=== PATIENT | female | born 1965 | race Caucasian/White ===

== ENCOUNTER → 2022-05-12 | Outpatient (CLI) | payer SELFPAY ==
--- NOTE | 2022-05-12 16:21 | MRI_ITS ---
EXAM: MR LUMBAR SPINE WITHOUT INTRAVENOUS CONTRAST CLINICAL INDICATION: INTERVERTEBRAL DISC DEGEN TECHNIQUE: Multiplanar and multisequence MR images of the lumbar spine without intravenous contrast. This report was created using Pricing Assistant report Z-good technology. COMPARISON: None. FINDINGS: VERTEBRAE: L1, L2 and L3 hemangiomata noted. Vertebral body heights are preserved. Normal alignment. No spondylolisthesis. There is preservation of the normal lumbar lordosis. Multilevel facet arthropathy. SPINAL CORD: Unremarkable. Normal position and signal intensity of the conus medullaris. SOFT TISSUES: Unremarkable. DISCS/SPINAL CANAL/NEURAL FORAMINA: L1-2: Disc space narrowing and anterior vertebral body osteophytosis. Normal caliber spinal canal and neural foramina. L2-3: Disc space narrowing and anterior disc osteophyte protrusion. Normal caliber spinal canal and neural foramina. L3-L4: Mild disc space narrowing. Normal spinal canal and lateral recesses. Normal neuroforamina. L4-L5: Unremarkable. Normal disc height and morphology. Normal spinal canal and lateral recesses. Normal neuroforamina. L5-S1: Unremarkable. Normal disc height and morphology. Normal spinal canal and lateral recesses. Normal neuroforamina. MRI/Spine Lumbar (Routine) IMPRESSION: 1. Disc degeneration at L1-2 and L2-3. 2. Multilevel facet arthropathy. 3. No evidence of spinal or neural foraminal narrowing. Electronically Signed: Grover Cage MD at 9:47 EDT ,
== END | disposition home or self-care (01) ==
PROVIDERS: PCP Physician Assistant
DX: M99.03 Segmental and somatic dysfunction of lumbar region (principal); M99.04 Segmental and somatic dysfunction of sacral region; M51.36 Other intervertebral disc degeneration, lumbar region; M47.817 Spondylosis without myelopathy or radiculopathy, lumbosacral region
CPT/HCPCS: 72148

== ENCOUNTER → 2025-03-18 | Outpatient (CLI) | payer SELFPAY ==
--- NOTE | 2025-03-18 16:30 | RAD_ITS ---
PROCEDURE: L/S SPINE BENDING FLEX/EXT 03/18/2025 REASON FOR EXAM: OTHER INTERVERTEBRAL DISC DEGENERATION, LUMBAR REGION WITH DISCOG TECHNIQUE: 6 views; AP, lateral, flexion-extension and bilateral obliques COMPARISON: None available FINDINGS: 5 [id number] lumbar vertebral body types identified. No fracture or malalignment. No evidence of instability. L1-2 [id number] disc space narrowing with degenerative endplate changes L2-3 moderate disc space narrowing with anterior corner spurring L3-4 mild disc space narrowing No evidence of spondylolysis. Status post cholecystectomy. RAD/L/S Spine Bending Flex/Ext IMPRESSION: Multilevel spondylosis/discogenic change as above. Reading Location: [id number]
== END | disposition home or self-care (01) ==
PROVIDERS: PCP Family Medicine; Referring Provider Chiropractor Orthopedic; Visit Provider Chiropractor Orthopedic
DX: M99.03 Segmental and somatic dysfunction of lumbar region (principal); M51.360 Other intervertebral disc degeneration, lumbar region with discogenic back pain only
CPT/HCPCS: 72120

== ENCOUNTER → 2025-04-25 | Outpatient (CLI) | payer OTHER, SELFPAY ==
--- NOTE | 2025-04-25 16:21 | RAD_ITS ---
PROCEDURE: KNEE 4 OR MORE VIEWS 04/25/2025 REASON FOR EXAM: KNEE SPRAIN/STRAIN TECHNIQUE: 4 view(s) of the right knee COMPARISON: None. FINDINGS: Mild tricompartmental changes of degenerative joint disease. No fracture or dislocation is seen. No lytic or blastic bone lesion is noted. RAD/Knee 4 or More Views IMPRESSION: No evidence for acute abnormality. Reading [facility]
--- OUTSIDE RECORDS SUMMARY | 2025-04-25 21:24 | XMS RPT_ITS | CCD ---
Author Organization [facility] CliniSynh Care Team Providers Care Learning Specialist Name Role Phone Noman Hardin Unavailable La Kidd Unavailable Unavailable La Kidd Unavailable Unavailable Noman Hardin Unavailable Unavailable Josué Rao Unavailable Unavailable Josué Rao Unavailable Unavailable Noman Hardin Unavailable Unavailable Noman Hardin Primary Care Provider La Patterson Primary Care Provider La Patterson Unavailable JONNATHAN AVENDAÑO Admitting Unavailable JONNATHAN AVENDAÑO Attending Unavailable LA PATTERSON JR. Primary Care Unava ilable Noman Hardin Primary Care Provider La Patterson Primary Care Provider [phone] La Patterson Unavailable Kiara Saldana Primary Care Provider Required, No Pcp Unavailable Unavailable Osvaldo Yost Unavailable Unavailable Mariana Whiting Unavailable Unavailable Kody Ferris Unavailable Unavailable Unavailable Barrington, Mr. Kody Littlejohn Primary Care Unav ailable UMA GONZALEZ Attending Unavailable UMA GONZALEZ Referring Unavailable Barrington, Mr. Kody Littlejohn Primary Care Unav ailable UMA GONZALEZ Attending Unavailable UMA GONZALEZ Referring Unavailable Barrington, Mr. Kody Littlejohn Primary Care Unav ailable Vaibhav, Ms. Mariana Quesada Attending Unava ilable Gonzalez II, Dr. Uma Rizvi Attending Unavai lable Gonzalez II, Dr. Uma Rizvi Referring Unavai lable Ferris, Mr. Kody Littlejohn Primary Care Unav ailable Barrington, Mr. Kody Littlejohn Referring Unav ailable Ellie Duran Attending Unavailable Barrington, Mr. Kody Littlejohn Primary Care Unav ailable Priyank, Ms. Osvaldo Hylton Attending Unavai lable Vaibhav, Ms. Mariana Quesada Attending Unava ilable Gonzalo WARHEAD MAINTENANCE SPECIALIST-DIRECTOR OF RESIDENCE LIFE, Kiara Primary Care Provider Gonzalo WARHEAD MAINTENANCE SPECIALIST-DIRECTOR OF RESIDENCE LIFE, Kiara Primary Care Provider CONNIE HADDAD Attending Unavailable SELF, SELF Referring Unavailable KIARA WHITE Primary Care Unavailable Barrington HANSEN, Kody Eron Primary Care [facility] er Maricel Walter MD Primary Care Provider Maricel Walter MD Primary Care Provider MARICEL WALTER Attending Unavailab KODY Mayen Primary Care Unavaila MARICEL Cook Attending Unavailab MARICEL Jose Referring Unavailab MARICEL Jose Primary Care Unavailab MARICEL Jose Attending Unavailab MARICEL Jose Primary Care Unavailab Laureen KELLY, Dr. Connelly Primary Care Provide r LA KIDD DO Attending Provider [phone] LA KIDD DO Referring Provider Maricel Walter Primary Care Unavailable LA KIDD Referring Unavailable LA KIDD Attending Unavailable PROVIDER, UNKNOWN Attending Unavailable PROVIDER, UNKNOWN Admitting Unavailable MARICEL WALTER Referring Unavaila isa Patterson Jr., MD, La López Primary Care Prov ider Sariah Mullins MD, Robert Edward Unavailable MAGGIE WALKER Attending Unavailable LA PATTERSON JR. Primary Care Unava ilable Allergies Allergy Classification Reported Allergen(s) Allergy Type Date of Onset Reaction(s) Facility (20 sources) Acetaminophen / HYDROcodone; Translations: [HYDROCODONE-VIDAL TAMINOPHEN] Drug Allergy 03-14-20 18 Hallucination, Hallucinations [facility] Work Phone: (1 source) No Known Medication Allergies; Translations: [No Known Medication Allergies] Propensity to adverse reactions to drug (disorder) [facility] Repository (4 sources) Acetaminophen / HYDROcodone; Translations: [Vicodin TABS] Drug Allergy [facility] Work Phone: Medications Current Medications Medication Drug Class(es) Dates Sig (Normalized) Sig (Original) [id number] 200 actuat albuterol 0.09 mg/actuat metered dose inhaler (6 sources) beta2-Adrenergic Agonist Start: 12-07-2024 take 2 puff(s) by inhalation every four hours for wheezing albuterol 90 mcg/actuation inhaler Inhale 2 puffs every 4 hours if needed for wheezing. 12/07/2024 Active Start: 11-20-2021 take 2 puff(s) by in halation every four hours as needed for cough albuterol 108 (90 Base) MCG/ACT Aero Soln inhaler Indications: COVID-19 long hauler Inhale 2 puffs every 4 hours as needed for Shortness of Breath, Cough or Wheezing. 18 g 11/20/2021 Active azithromycin 250 mg oral tablet (2 sources) Macrolide Antimicrobial Start: 12-07-2024 End: 12-25-2024 azithromycin (Zithromax) 250 mg tablet Take 1 tablet (250 mg) by mouth see administration instructions. TAKE 2 TABLETS (500 MG) BY ORAL ROUTE ONCE DAILY FOR 1 DAY THEN 1 TABLET (250 MG) BY ORAL ROUTE ONCE DAILY FOR 4 DAYS 12/07/2024 12/25/2024 Discontinued (Med List Cleanup) benzonatate 100 mg oral capsule (2 sources) Non-narcotic Antitussive Start: 12-11-2024 End: 12-25-2024 take 1 capsule by mouth three times daily as needed for cough benzonatate (Tessalon) 100 mg capsule Indications: Pneumonia due to infectious organism, unspecified laterality, unspecified part of lung Take 1 capsule (100 mg) by mouth 3 times a day as needed for cough. Do not crush or chew. 60 capsule 12/11/2024 12/25/2024 Discontinued (Med List Cleanup) biotin 1 mg oral capsule (3 sources) take 1 capsule by mouth once daily biotin 1 mg capsule Take 1 capsule (1 mg) by mouth once daily. Active bisacodyl 5 mg delayed release oral tablet (1 source) Stimulant Laxative Start: 10-31-2018 End: 10-31-2018 take 4 tablets by mouth once bisacodyl (DULCOLAX) [address] Take 4 tablets by mouth once for 1 dose. 4 tablet 0 10/31/2018 10/31/2018 Active brompheniramine maleate 0.4 mg/ml / dextromethorphan hydrobromide 2 mg/ml / pseudoephedrine hydrochloride 6 mg/ml oral solution (4 sources) alpha-Adrenergic Agonist, Uncompetitive C-ifikqp-Z-asparta te Receptor Antagonist, Sigma-1 Agonist Start: 12-05-2024 End: 12-25-2024 take 10 mL by mouth every six hours as needed brompheniramine-pse udoeph-DM 2-30-10 mg/5 mL syrup Take 10 mL by mouth every 6 hours if needed. 12/05/2024 12/25/2024 Discontinued (Med List Cleanup) cholecalciferol 0.01 mg oral tablet (19 sources) Vitamin D cholecalciferol, vitamin D3, 400 unit Tab Take by mouth daily . Active take 1 tablet by mouth once sowmya y cholecalciferol (Vitamin D-3) 10 MCG (400 UNIT) tablet Take 1 tablet (10 mcg) by mouth once daily. Active take 1 capsule by mouth once cici ly Cholecalciferol (VITAMIN D3 PO) Take 1 capsule by mouth daily. 0 Active take 1 capsule by mouth once cici ly Cholecalciferol (VITAMIN D3 PO) Take 1 capsule by mouth daily. Active cholecalciferol, vitamin D3, (cholecalciferol, vit D3,,bulk,) 100,000 unit/gram Powd (1 source) take 1 capsule by mouth once daily cholecalciferol, vitamin D3, (cholecalciferol, vit D3,,bulk,) 100,000 unit/gram Powd Take 1 capsule by mouth daily . Active 84 hr estradiol 0.75118 mg/hr transdermal system (4 sources) Estrogen Start: 5 End: 6 estradioL (Vivelle-Dot) 0.0375 mg/24 hr Indications: Menopausal symptoms Place 1 (one) patch on the skin twice weekly Start: 04/15/25. 8 patch 3 04/15/2025 04/15/2026 Active estradioL (ESTRA CE) 0.01 % (0.1 mg/gram) vaginal cream Insert 2 (two) g into the vagina daily . Active estradiol 0.1 MG /GM cream USE A PEA SIZED AMOUNT IN THE VAGINA TWICE WEEKLY Active 60 actuat fluticasone propionate 0.25 mg/actuat / salmeterol 0.05 mg/actuat dry powder inhaler (3 sources) Corticosteroid, beta2-Adrenergic Agonist Start: 11-20-2021 take 1 puff(s) by mouth twice daily fluticasone-salmeterol (Advair Diskus) 250-50 MCG/DOSE Aerosol Powder, breath activated inhaler Indications: COVID-19 long hauler Inhale 1 puff 2 times daily. After administration, rinse mouth with water and spit. 60 Each 11/20/2021 Active hyoscyamine sulfate 0.12 mg / methenamine 81.6 mg / methylene blue 10.8 mg / sodium phosphate, monobasic 40.8 mg oral tablet (6 sources) Oxidation-Reduction Agent Start: 01-07-2023 take 1 tablet by mouth once daily Dtkbwi-Rbyoa-Fsqp Blue-Na Phos (Urogesic-Blue) 81.6 MG tablet Take 1 tablet by mouth daily. 01/07/2023 Active Magnesium Citrate Po Soln (1 source) Start: 10-31-2018 End: 10-31-2018 take 296 mL by mouth once magnesium citrate Solution Take 296 mL by mouth once for 1 dose. Drink one bottle in the morning on the day before your colonoscopy and follow with a glass of water. 1 Bottle 0 10/31/2018 10/31/2018 Active magnesium sulfate 0.0277 meq/ml / potassium sulfate 0.0374 meq/ml / sodium sulfate 0.257 meq/ml oral solution (1 source) Start: 10-31-2018 End: 11-01-2018 sodium sulfate-potassium sulfate (SUPREP BOWEL PREP KIT) 17.5-3.13-1.6 GM/177ML Solution oral solution Take 177 mL by mouth once as directed for up to 1 day. Use as directed. 2 Bottle 0 10/31/2018 11/01/2018 Active Misc Natural Products (TURMERIC) capsule (7 sources) take 1 capsule by mouth once daily Misc Natural Products (TURMERIC) capsule Take 1 capsule by mouth daily. Active take 1 capsule by mouth once cici ly Misc Natural Products (TURMERIC) capsule Take 1 capsule by mouth daily. 0 Active Multiple Vitamin (multivitamin) tablet (2 sources) take 1 tablet by pepe th once daily Multiple Vitamin (multivitamin) tablet Take 1 tablet by mouth daily. Active take 1 tablet by mouth once oswmya y Multiple Vitamin (multivitamin) tablet Take 1 tablet by mouth daily. 0 Active yplwhvhrwhsl-Px-jcpf-mineral s Tab (1 source) take 1 tablet by mouth once daily vkdurnimlbmt-Kk-kvvj-minerals Tab Take 1 tablet by mouth daily . Active ondansetron 4 mg disintegrat ing oral tablet (5 sources) Serotonin-[address] ar t: En d: ondansetron ODT (Zofran-ODT) 4 mg disintegrating tablet Dissolve 1 tablet (4 mg) in the mouth see administration instructions. Place 1 tablet 3 times a day by translingual route as needed for 7 days 12/05/2024 12/25/2024 Discontinued (Med List Cleanup) Start: 03-05-2019 End: 03-05-2019 take 4 mg intravenous route every twenty-four hours as needed 4 mg, Intravenous, Once as needed, nausea, vomiting, Starting 03/05/19 at 1011, For 1 dose, PACU (only) Administer first as needed for nausea/vomiting, or as directed by anesthesia predniSONE 20 mg oral tablet (4 sources) Start: 12-11-2024 End: 12-16-2024 take 1 tablet by mouth once daily predniSONE (Deltasone) 20 mg tablet Indications: Pneumonia due to infectious organism, unspecified laterality, unspecified part of lung Take 1 tablet (20 mg) by mouth once daily for 5 days. 5 tablet 12/11/2024 12/16/2024 Active Start: 03-14-2018 End: 10-31-2018 take 1 tablet by mouth twice daily predniSONE 20 MG Tab tablet Take 1 tablet by mouth 2 times daily. 10 tablet 0 03/14/2018 10/31/2018 Discontinued progesterone 100 mg oral capsule (1 source) Progesterone Start: 04-12-2025 End: 04-12-2026 take 1 capsule by mouth once daily progesterone (PROMETRIUM) 100 MG capsule Indications: Menopausal symptoms Take 1 (one) capsule (100 mg total) by mouth nightly . 30 capsule 3 04/12/2025 04/12/2026 Active tiZANidine 2 mg oral tablet (4 sources) Central alpha-2 Adrenergic Agonist Start: 12-05-2024 End: 12-25-2024 take 1 tablet by mouth three times daily tiZANidine (Zanaflex) 2 mg tablet Take 1 tablet (2 mg) by mouth 3 times a day. 12/05/2024 12/25/2024 Discontinued (Med List Cleanup) Turmeric Po Capsule (5 sources) take 1 capsule by mouth once daily Misc Natural Products (TURMERIC) capsule Take 1 capsule by mouth daily. Active Zinc (5 sources) Zinc 50 MG capsu le Take 1 capsule by mouth. Active Zinc 50 MG capsu le Take 1 capsule by mouth. 0 Active Zinc 50 MG capsu le Take 50 mg by mouth. 0 Active zinc citrate-phytase 25-500 mg cap (1 source) zinc citrate-phy tase 25-500 mg cap Take 50 mg by mouth . Active Completed/Discontinued Medications Medication Drug Class(es) Dates Sig (Normalized) Sig (Original) ascorbic acid 1000 mg oral tablet (20 sources) Vitamin C End: 04-12-2025 take 1 tablet by mouth once daily ascorbic acid, vitamin C, (vitamin C) 1000 MG tablet Take 1,000 mg by mouth daily . 04/12/2025 Discontinued End: 04-12-2025 take 1 tablet by mouth once daily ascorbic acid, vitamin C, 500 mg/4 gram (1 teaspooful) Powd Take 1 tablet by mouth daily . 04/12/2025 Discontinued (Error) take 1 tablet by pepe th once daily Ascorbic Acid (VITAMIN C PO) Take 1 tablet by mouth daily. 0 Active take 1 tablet by pepe th once daily Ascorbic Acid (VITAMIN C PO) Take 1 tablet by mouth daily. Active calcium chloride 0.0014 meq/ml / potassium chloride 0.004 meq/ml / sodium chloride 0.103 meq/ml / sodium lactate 0.028 meq/ml injectable solution (2 sources) Start: 03-05-2019 End: 03-05-2019 take 100 mL intravenous route every hour 100 mL/hr, Intravenous, Continuous, Starting Tue03/05/19 at 1100, PACU (only) Start: 03-05-2019 End: 03-05-2019 lactated Ringers infusion diclofenac sodium 50 mg delayed release oral tablet (3 sources) Nonsteroidal Anti-inflammatory Drug Start: 03-14-2018 End: 10-31-2018 take 1 tablet by mouth twice daily diclofenac sodium [address] Take 1 tablet by mouth 2 times daily. 10 tablet 0 03/14/2018 10/31/2018 Discontinued escitalopram 10 mg oral tablet (1 source) Serotonin Reuptake Inhibitor Start: 08-18-2021 End: 09-18-2021 take 1 tablet by mouth once daily escitalopram (Lexapro) 10 MG tablet Indications: Menopausal symptoms Take 1 tablet by mouth daily. 30 tablet 1 08/18/2021 09/18/2021 Discontinued 4 ml labetalol hydrochloride 5 mg/ml cartridge (1 source) beta-Adrenergic Tracey Start: 03-05-2019 End: 03-05-2019 5 mg, Intravenous, Every 5 min PRN, SBP greater than 180 or DBP greater than 120, Starting Tue03/05/19 at 1011, For 4 doses, PACU (only) [] Do not give more than 20 mg total. [] Hold for HR less than 50. nitrofurantoin, macrocrystals 25 mg / nitrofurantoin, monohydrate 75 mg oral capsule (2 sources) Nitrofuran Antibacterial Start: 10-16-2022 End: 10-22-2022 take 1 capsule by mouth twice daily at mealtime Macrobid 100 mg oral capsule ; 1 cap(s) orally 2 times a day Quantity: 14 Refills: 0 Ordered: 16-Oct-2022 Osvaldo Yost Start: 16-Oct-2022 End: 22-Oct-2022 Generic Substitution Allowed Comments: Finish all this medication unless otherwise directed by prescriber.May discolor urine or feces.Take with food or milk. Comment on above: Finish all this medi cation unless otherwise directed by prescriber.May discolor urine or feces.Take with food or milk. phentermine hydrochloride 37.5 mg oral tablet (8 sources) Sympathomimetic Amine Anorectic Start: 09-18-2021 End: 11-21-2021 take 1 tablet by mouth once daily before breakfast phentermine 37.5 MG tablet Indications: BMI 31.0-31.9,adult , Pure hypercholesterolemia Take 1 tablet by mouth every morning before breakfast. 30 tablet 0 10/22/2021 11/20/2021 Discontinued End: 04-12-2025 take 1 capsule by mouth once daily in the morning phentermine (ADIPEX-P) 37.5 MG capsule Take 37.5 mg by mouth every morning . 04/12/2025 Discontinued (Patient's Request) 2 ml prochlorperazine 5 mg/ml injection (1 source) Phenothiazine Start: 03-05-2019 End: 03-05-2019 take 5 mg intravenous route every twenty-four hours as needed 5 mg, Intravenous, Once as needed, nausea, Starting 03/05/19 at 1011, For 1 dose, PACU (only) Administer if ondansetron (Zofran), promethazine (Phenergan), and Metocolopramide (Reglan) ineffective or not ordered, or as directed by anesthesia, as needed for nausea/vomiting Problems Active Problems Problem Classification Problem Date Documented Da te Episodic/Chronic Abdominal pain (7 sources) Unspecified abdominal pain; Translations: [Abdominal pain] Onset: 10-16-2022 02-21-2025 Episodic Disorders of lipid metabolism (2 sources) Pure hypercholesterolemia; Translations: [Pure hypercholesterolemia, unspecified] Chronic Genitourinary symptoms and ill-defined conditions (20 sources) Dysuria; Translations: [Dysuria] Onset: 10-23-2022 10-23-2022 Episodic Menopausal disorders (5 sources) Menopausal symptom; Translations: [Menopausal and female climacteric states] Onset: 02-08-2023 Chronic Nausea and vomiting (8 sources) Nausea and vomiting; Translations: [Nausea with vomiting, unspecified] Onset: 12-05-2024 12-05-2024 Episodic Other bone disease and musculoskeletal deformities (1 source) Segmental and somatic dysfunction of lumbar region; Translations: [Segmental and somatic dysfunction of lumbar region] Onset: 03-21-2025 Episodic Other female genital disorders (2 sources) Vaginal irritation; Translations: [Unspecified noninflammatory disorder of vagina] 10-23-2022 Episodic Other gastrointestinal disorders (2 sources) Abdominal bloating; Translations: [Abdominal distension (gaseous)] 02-21-2025 Episodic Other gastrointestinal disorders (3 sources) Abdominal distension (gaseous); Translations: [Abdominal distension (gaseous)] Onset: 02-21-2025 Episodic Other infections; including parasitic (1 source) Late effects of other and unspecified infectious and parasitic diseases; Translations: [COVID-19 long hauler] Chronic Other nutritional; endocrine; and metabolic disorders (12 sources) Obesity, unspecified; Translations: [Obese class I] Onset: 10-05-2018 10-05-2018 Chronic Other nutritional; endocrine; and metabolic disorders (2 sources) Body mass index 30+ - obesity; Translations: [Body mass index (BMI) 31.0-31.9, adult] Chronic Other nutritional; endocrine; and metabolic disorders (1 source) Obese class I; Translations: [Obesity (BMI 30.0-34.9)] Onset: 10-05-2018 10-05-2018 Other skin disorders (1 source) Loss of hair; Translations: [Nonscarring hair loss, unspecified] 04-12-2025 Episodic Other skin disorders (2 sources) Nonscarring hair loss, unspecified; Translations: [Nonscarring hair loss, unspecified] Onset: 04-12-2025 Episodic Pneumonia (except that caused by tuberculosis or sexually transmitted disease) (3 sources) Pneumonia; Translations: [Pneumonia, unspecified organism] Onset: 12-11-2024 12-11-2024 Episodic Spondylosis; intervertebral disc disorders; other back problems (1 source) Acute low back pain; Translations: [Acute midline low back pain without sciatica] 12-05-2024 Episodic Unclassified (11 sources) Screening status; Translations: [Encounter for screening colonoscopy] Onset: 10-31-2018 10-31-2018 Unclassified (4 sources) Patient encounter status; Translations: [Encounter for screening colonoscopy] Onset: 10-31-2018 10-31-2018 Unclassified (1 source) Low back pain, unspecified; Translations: [Low back pain, unspecified] Onset: 12-05-2024 Urinary tract infections (8 sources) Urinary tract infectious disease; Translations: [Recurrent urinary tract infection] 12-03-2022 Episodic Comment on above: UTI Viral infection (3 sources) Viral disease; Translations: [Viral infection, unspecified] Onset: 12-05-2024 12-05-2024 Episodic Past or Other Problems Problem Classification Problem Date Documented Date Episodic/Chronic Other female genital disorders (2 sources) Other specified noninflammatory disorders of vagina; Translations: [Other specified noninflammatory disorders of vagina] Onset: 10-23-2022 Episodic Other screening for suspected conditions (not mental disorders or infectious disease) (12 sources) Mammography abnormal; Translations: [Encounter for screening for malignant neoplasm of colon] Onset: 10-31-2018 08-18-2021 Episodic Unclassified (1 source) Low back pain, unspecified; Translations: [Low back pain, unspecified] Onset: 12-05-2024 Results Test Name Value Interpretation Reference Range Facility CT ABDOMEN/PELVIS W/ CONTRAS Ton 03-19-2025 CT ABDOMEN/PELVIS W/ CONTRAST EXAMINATION: CT ABDOMEN/PELVIS W/ CONTRAST 03/19/2025 09:35 AM CLINICAL HISTORY: Abdominal pain ASSOCIATED DIAGNOSIS: Abdominal pain, unspecified abdominal location Bloating Nausea ORDERING PROVIDER: MARICEL WALTER TECHNOLOGISTS NOTE: COMPARISON: There are no prior studies available for comparison. TECHNIQUE: Contiguous axial images were obtained through the abdomen and pelvis from the level of the diaphragmatic domes through the pubic symphysis following bolus administration of intravenous contrast. MPR sagittal and coronal reconstructions were obtained from the axial data. Before infusion of intravenous contrast, radiology personnel investigated the possibility of an allergic history and of any history of reaction to iodinated contrast material. Contrast Protocol: Omnipaque 350 [>or =100lb] 100 ml [<100 lb] 1 ml per 1 lb. INTRA-PROCEDURE MEDS: iohexol (OMNIPAQUE) 300 MG/ML injection 50 mL Route: Oral iohexol (OMNIPAQUE) 350 MG/ML injection 100 mL Route: Intravenous Push FINDINGS: Included images of the lower thorax: There is a small right Bochdalek hernia and moderate left Bochdalek hernia compressing the posterior inferior medial recesses of both lower lobes. The remaining visualized lung bases are clear and interstitial markings are normal with no evidence of pleural disease. The visualized cardiac structures are grossly normal. Hepatobiliary: The liver is normal in size and shape and mildly decreased in density relative to the spleen with no evidence of focal lesions or abnormal enhancement. The patient is status post cholecystectomy and the intrahepatic and extrahepatic bile ducts are normal. Pancreas: The pancreas is normal in size and shape with no evidence of focal lesions, abnormal enhancement, ductal dilatation or inflammatory change. Spleen: The spleen is normal in size, shape and density with no evidence of focal lesions or abnormal enhancement. There is a 10 x 10 x 10 mm accessory spleen lateral to the posterior splenic flexure and anterior to the inferior spleen. Adrenal Glands: The adrenal glands are normal in size and shape with no evidence of focal lesions or abnormal enhancement. Kidneys, ureters, and bladder: The kidneys are normal in size and shape with no evidence of focal lesions, abnormal enhancement or renal stones. There is normal uptake, concentration and excretion of intravenous contrast within both kidneys and the intrarenal and extrarenal collecting systems. The visualized ureters are grossly normal with no evidence of ureterolithiasis. The bladder is poorly distended and grossly normal with no evidence of bladder stones. Abdominal and pelvic vasculature: The abdominal aorta is normal in caliber and mildly tortuous with mild patchy atherosclerotic calcification. There is mild calcification of the right common iliac artery with no evidence of flow-limiting stenosis and the left common iliac arteries are normal. The celiac, superior mesenteric and renal arteries are normal. The inferior vena cava and portal venous system are normal. GI tract: The stomach, duodenum, proximal small bowel and distal small bowel are not opacified with oral contrast and grossly normal. The remaining small bowel is opacified with oral contrast and normal with no evidence of obstruction or inflammatory change. There is a mild to moderate amount of stool throughout the colon and the large bowel and rectum are grossly normal. The appendix is grossly normal. Peritoneum and retroperitoneum: There is no evidence of free air or free fluid throughout the abdomen and pelvis. Lymph Nodes: There is no evidence of adenopathy throughout the abdomen and pelvis. Uterus and adnexa: The uterus is appropriate in size for the patient's age and normal in density. The endometrial canal is nonvisualized. The visualized ovaries and adnexa are grossly normal. Visualized musculoskeletal structures: There is mild osteopenia throughout study and the visualized vertebral bodies, pedicles and posterior lamina are intact and the lumbar vertebral body heights are normal. There is mild to moderate degenerative change throughout the visualized thoracic spine, lumbar spine, sacroiliac joints and hip joints. The remainder of the bony pelvis and sacrum are normal. There is a small fat-containing umbilical hernia. The remaining muscular and soft tissue structures of the body wall, pelvic and hip regions are normal. IMPRESSION: 1. There is no evidence of an acute abdominal or pelvic process. 2. There is no evidence of adenopathy. 3. The solid organs are normal and the bowel is grossly normal. 4. There are additional findings as described above. MACRO: None Normal [employer] L/S Spine Bending Flex/[place]ammond 03-18-2025 L/S Spine Bending Flex/Ext [facility] Services [address], [place] [id number] L/S Spine Bending Flex/Ext MR#: [id number] Acct: [id number] Name: THOM SPARKS Rep #: [id number] : 1965 F 60 From: La Coffey MD PCP: Dr. Maricel Walter MD Status: REG CLI Study: L/S Spine Bending Flex/Ext Date of Exam: 03/18 Exam# [id number] Ordering Dr: LA KDID DO PROCEDURE: L/S SPINE BENDING FLEX/EXT 03/18/2025 REASON FOR EXAM: OTHER INTERVERTEBRAL DISC DEGENERATION, LUMBAR REGION WITH DISCOG TECHNIQUE: 6 views; AP, lateral, flexion-extension and bilateral obliques COMPARISON: None available FINDINGS: 5 mem-esq-kxxokkp lumbar vertebral body types identified. No fracture or malalignment. No evidence of instability. L1-2 bryzieqd-yk-njjxmm disc space narrowing with degenerative endplate changes L2-3 moderate disc space narrowing with anterior corner spurring L3-4 mild disc space narrowing No evidence of spondylolysis. Status post cholecystectomy. RAD/L/S Spine Bending Flex/Ext IMPRESSION: Multilevel spondylosis/discogenic change as above. Reading Location: [id number] CC: Dr. Maricel Walter MD; LA KIDD DO Contract Associate: Signed Normal [facility] CBC (INCLUDES DIFF/PLT)on Basophils (Bld) [#/Vol] 0.069 10*3/uL Normal 0-200 [facility] Comment on above: Performed By: #### 7 600, 81713, 6399, 927, 52620 #### [facility] of [place] [address] Stress Engineer: Uvaldo Hurtado MD Basophils/100 WBC (Bld) 1.4 % Normal [facility] Comment on above: Performed By: #### 7 600, 63897, 6399, 927, 48064 #### [facility] [place] [address] Stress Engineer: Uvaldo Hurtado MD Eosinophils (Bld) [#/Vol] 0.314 10*3/uL Normal 15-500 [facility] Comment on above: Performed By: #### 7 600, 76296, 6399, 927, 97850 #### [facility] [place] [address] Stress Engineer: Uvaldo Hurtado MD Eosinophils/100 WBC (Bld) 6.4 % Normal [facility] Comment on above: Performed By: #### 7 600, 15114, 6399, 927, 68045 #### [facility] [place] [address] Stress Engineer: Uvaldo Hurtado MD Erythrocyte distribution width (RBC) [Ratio] 13.2 % Normal 11.0-15.0 [facility] Comment on above: Performed By: #### 7 600, 26806, 6399, 927, 01405 #### [facility] [place] [address] Stress Engineer: Uvaldo Hurtado MD Hematocrit (Bld) [Volume fraction] 42.2 % Normal 35.0-45.0 [facility] Comment on above: Performed By: #### 7 600, 25610, 6399, 927, 82735 #### [facility] [place] [address] Stress Engineer: Uvaldo Hurtado MD Hemoglobin (Bld) [Mass/Vol] 13.7 g/dL Normal 11.7-15.5 [facility] Comment on above: Performed By: #### 7 600, 46618, 6399, 92, 64784 #### [facility] [place] [address] Stress Engineer: Uvaldo Hurtado MD Lymphocytes (Bld) [#/Vol] 1.617 10*3/uL Normal 850-3900 [facility] Comment on above: Performed By: #### 7 600, 90181, 6399, 92, #### [facility] [place] [address] Stress Engineer: Uvaldo Hurtado MD Lymphocytes/100 WBC (Bld) 33.0 % Normal [facility] Comment on above: Performed By: #### 7 600, 03768, 65, 92, 63187 #### [facility] [place] [address] Stress Engineer: Uvaldo Hurtado MD MCH (RBC) [Entitic mass] 28.8 pg Normal 27.0-33.0 [facility] Comment on above: Performed By: #### 7 600, 53618, 84, 92, 25600 #### [facility] [place] [address] Stress Engineer: Uvaldo Hurtado MD MCHC (RBC) [Mass/Vol] 32.5 g/dL Normal 32.0-36.0 [facility] Comment on above: Result Comment: For adults, a slight decrease in the calculated MCHC value (in the range of 30 to 32 g/dL) is most likely not clinically significant; however, it should be interpreted with caution in correlation with other red cell parameters and the patient's clinical condition. Performed By: #### 7 600, 88255, 8999, 92, 13229 #### [facility] [place] [address] Stress Engineer: Uvaldo Hurtado MD MCV (RBC) [Entitic vol] 88.8 fL Normal 80.0-100.0 [facility] Comment on above: Performed By: #### 7 600, 11841, 6399, 927, 79466 #### [facility] [place] [address] Stress Engineer: Uvaldo Hurtado MD Monocytes (Bld) [#/Vol] 0.412 10*3/uL Normal 200-950 [facility] Comment on above: Performed By: #### 7 600, 26943, 6399, 927, 04278 #### [facility] [place] [address] Stress Engineer: Uvaldo uHrtado MD Monocytes/100 WBC (Bld) 8.4 % Normal [facility] Comment on above: Performed By: #### 7 600, 57669, 6399, 927, 58054 #### [facility] [place] [address] Stress Engineer: Uvaldo Hurtado MD Neutrophils (Bld) [#/Vol] 2.489 10*3/uL Normal 9036-2345 [facility] Comment on above: Performed By: #### 7 600, 57164, 6399, 927, 04296 #### [facility] [place] [address] Stress Engineer: Uvaldo Hurtado MD Neutrophils/100 WBC (Bld) 50.8 % Normal [facility] Comment on above: Performed By: #### 7 600, 38033, 6399, 927, 29013 #### [facility] [place] [address] Stress Engineer: Uvaldo Hurtado MD Platelet mean volume (Bld) [Entitic vol] 10.0 fL Normal 7.5-12.5 [facility] Comment on above: Performed By: #### 7 600, 20865, 6399, 927, 61564 #### [facility] [place] [address] Stress Engineer: Uvaldo Hurtado MD Platelets (Bld) [#/Vol] 276 10*3/uL Normal 140-400 [facility] Comment on above: Performed By: #### 7 600, 33832, 6399, 927, 45554 #### [facility] of [address], [address] [place] [address] Stress Engineer: Uvaldo Hurtado MD RBC (Bld) [#/Vol] 4.75 10*6/uL Normal 3.80-5.10 [facility] Comment on above: Performed By: #### 7 600, 10081, 6399, 927, 65774 #### [facility] of [address], [address] [place] [address] Stress Engineer: Uvaldo Hurtado MD WBC (Bld) [#/Vol] 4.9 10*3/uL Normal 3.8-10.8 [facility] Comment on above: Performed By: #### 7 600, 93515, 6399, 927, 15575 #### [facility] of [address], [address] [place] [address] Stress Engineer: Uvaldo Hurtado MD COMPREHENSIVE METABOLIC PANE L W/ANION GAPon 01-04-2025 Albumin [Mass/Vol] 4.3 g/dL Normal 3.6-5.1 [facility] Comment on above: Performed By: #### 7 600, 25524, 6399, 927, 69363 #### [facility] of [address], [address] [place] [address] Stress Engineer: Uvaldo Hurtado MD ALP [Catalytic activity/Vol] 71 U/L Normal 37-153 [facility] Comment on above: Performed By: #### 7 600, 85173, 6399, 927, 79591 #### [facility] of [address], [address] [place] [address] Stress Engineer: Uvaldo Hurtado MD ALT [Catalytic activity/Vol] 23 U/L Normal 6-29 [facility] Comment on above: Performed By: #### 7 600, 69307, 6399, 927, 74801 #### [facility] of [address], [address] [place] [address] Stress Engineer: Uvaldo Hurtado MD AST [Catalytic activity/Vol] 17 U/L Normal 10-35 [facility] Comment on above: Performed By: #### 7 600, 92301, 6399, 927, 51539 #### [facility] of [address], [address] [place] [address] Stress Engineer: Uvaldo Hurtado MD Bilirubin [Mass/Vol] 0.7 mg/dL Normal 0.2-1.2 [facility] Comment on above: Performed By: #### 7 600, 73222, 6399, 927, 32029 #### [facility] [place] [address] Stress Engineer: Uvaldo Hurtado MD Calcium [Mass/Vol] 9.1 mg/dL Normal 8.6-10.4 [facility] Comment on above: Performed By: #### 7 600, 81225, 6399, 927, 75490 #### [facility] of [address], [address] [place] [address] Stress Engineer: Uvaldo Hurtado MD Chloride [Moles/Vol] 105 mmol/L Normal 98-110 [facility] Comment on above: Performed By: #### 7 600, 47965, 6399, 927, 10543 #### [facility] [place] [address] Stress Engineer: Uvaldo Hurtado MD CO2 [Moles/Vol] 27 mmol/L Normal 20-32 [facility] Comment on above: Performed By: #### 7 600, 85713, 6399, 927, 33851 #### [facility] [place] [address] Stress Engineer: Uvaldo Hurtado MD Creatinine [Mass/Vol] 0.76 mg/dL Normal 0.50-1.03 [facility] Comment on above: Performed By: #### 7 600, 37288, 6399, 927, 91209 #### [facility] [address] [place] [address] Stress Engineer: Uvaldo Hurtado MD ELECTROLYTE BALANCE 8 mmol/L (calc) Normal 7-17 [facility] Comment on above: Performed By: #### 7 600, 33721, 8999, 927, 76250 #### [facility] [place] [address] Stress Engineer: Uvaldo Hurtado MD GFR/1.73 sq M.predicted among non-blacks MDRD (S/P/Bld) [Vol rate/Area] 90 mL/min/{1.73_m2} Normal > OR = 60 [facility] Comment on above: Performed By: #### 7 600, 16656, 8799, 927, 93842 #### [facility] [place] [address] Stress Engineer: Uvaldo Hurtado MD Glucose [Mass/Vol] 87 mg/dL Normal 65-99 [facility] Comment on above: Result Comment: Fasting reference interval Performed By: #### 7 600, 83454, 0099, 927, 98334 #### [facility] [place] [address] Stress Engineer: Uvaldo Hurtado MD Potassium [Moles/Vol] 4.1 mmol/L Normal 3.5-5.3 [facility] Comment on above: Performed By: #### 7 600, 68110, 0999, 927, 07142 #### [facility] [place] [address] Stress Engineer: Uvaldo Hurtado MD Protein [Mass/Vol] 7.1 g/dL Normal 6.1-8.1 [facility] Comment on above: Performed By: #### 7 600, 13902, 6399, 927, 88434 #### [facility] [place] [address] Stress Engineer: Uvaldo Hurtado MD Sodium [Moles/Vol] 140 mmol/L Normal 135-146 [facility] Comment on above: Performed By: #### 7 600, 24607, 6399, 927, 60867 #### [facility] [address], [address] [place] [address] Stress Engineer: Uvaldo Hurtado MD Urea nitrogen [Mass/Vol] 22 mg/dL Normal 7-25 [facility] Comment on above: Performed By: #### 7 600, 55082, 6399, 927, 08202 #### [facility] [address], [address] [place] [address] Stress Engineer: Uvaldo Hurtado MD LIPID PANEL, [facility] 02-2 Cholesterol [Mass/Vol] 226 mg/dL High <200 [facility] Comment on above: Order Comment: FASTI NG:YES FASTING: YES Performed By: #### 7 600, 38065, 6399, 927, 95907 #### [facility] [address], [address] [place] [address] Stress Engineer: Uvaldo Hurtado MD Cholesterol in HDL [Mass/Vol] 71 mg/dL Normal > OR = 50 [facility] Comment on above: Order Comment: FASTI NG:YES FASTING: YES Performed By: #### 7 600, 43731, 6399, 927, 28279 #### [facility] [place] [address] Stress Engineer: Uvaldo Hurtado MD Cholesterol in LDL [Mass/Vol] 137 mg/dL High [facility] Comment on above: Order Comment: FASTI NG:YES FASTING: YES Result Comment: Refe rence range: <100 Desirable range <100 mg/dL for primary prevention; <70 mg/dL for patients with CHD or diabetic patients with > or = 2 CHD risk factors. LDL-C is now calculated using the Nixon calculation, which is a validated novel method providing better accuracy than the Friedewald equation in the estimation of LDL-C. Felipe HONG et al. GWEN. 2013;310(19): 6481-1363 (http://education.psicofxp/faq/IXD991) Performed By: #### 7 600, 80900, 6399, 927, 29940 #### [facility] [place] [address] Stress Engineer: Uvaldo Hurtado MD Cholesterol.total/ Cholesterol in HDL [Mass ratio] 3.2 {ratio} Normal <5.0 [facility] Comment on above: Order Comment: FASTI NG:YES FASTING: YES Performed By: #### 7 600, 99092, 6399, 927, 12745 #### [facility] [place] [address] Stress Engineer: Uvaldo Hurtado MD NON HDL CHOLESTEROL 155 mg/dL (calc) High <130 [facility] Comment on above: Order Comment: FASTI NG:YES FASTING: YES Result Comment: For patients with diabetes plus 1 major ASCVD risk factor, treating to a non-HDL-C goal of <100 mg/dL (LDL-C of <70 mg/dL) is considered a therapeutic option. Performed By: #### 7 600, 92786, 1099, 927, 06264 #### [facility] [place] [address] Stress Engineer: Uvaldo Hurtado MD Triglyceride [Mass/Vol] 83 mg/dL Normal <150 [facility] Comment on above: Order Comment: FASTI NG:YES FASTING: YES Performed By: #### 7 600, 91807, 4599, 927, 18433 #### [facility] [place] [address] Stress Engineer: Uvaldo Hurtado MD TSH W/REFLEX TO FT4on 2024 TSH W/REFLEX TO FT4 2.06 mIU/L Normal 0.40-4.50 [facility] Comment on above: Performed By: #### 7 600, 04797, 5699, 927, 72245 #### [facility] [place] [address] Stress Engineer: Uvaldo Hurtado MD VITAMIN B12on 01-04-2025 Cobalamin (Vitamin B12) [Mass/Vol] 1041 pg/mL Normal 200-1100 [facility] Comment on above: Performed By: #### 7 990, 42753, 9793, 780, 65149 #### [facility] [address], [address] [place] [address] Stress Engineer: Uvaldo Hurtado MD Office Visit ([facility])o n 02-08-2023 Follow-up visit Diagnoses/Problems Assessed Urinary frequency (788.41) (R35.0) Vaginal atrophy (627.3) (N95.2) Orders Urinary frequency Urinalysis; Status:In Progress - Specimen/Data Collected; Done: 08Feb2023 Vaginal atrophy Start: Estradiol 0.1 MG/GM Vaginal Cream; Use a pea sized amount in the vagina twice weekly Patient Discussion/Summary Vaginal estrogen will come as a tube of cream with an applicator. Unless specifically directed otherwise, do not use the applicator. Use a pea-sized amount of cream on the tip of your finger and place the cream into the vagina, inserting your finger to the first knuckle. Do this at bedtime twice weekly. Vaginal estrogen is NOT hormone replacement therapy. It is absorbed only locally, and only has an effect on the vagina and bladder. There is even evidence to support its use in women with estrogen-responsive breast cancer, because the levels of estrogen that gets absorbed in the bloodstream are extremely low. Vaginal estrogen can have many beneficial effects including healing of the vaginal tissue, prevention of UTIs, reduction in urinary frequency/burning, and decreased pain with sexual intercourse. Provider Impressions 58 y/o here as self referral for history of dysuria Dysuria, vaginal atrophy - suspect LUTS related to vaginal atrophy - recommended vaginal estrogen twice weekly - counseled this is not HRT, reviewed lack of systemic absorption - reviewed instructions for use and rx sent to pharmacy today - advised her to call office if UTI symptoms recur and we can send a culture order/treat as indicated Well woman care - recommended follow up with [facility] for pap smear as she is over-due - appointment information given today RTC as needed Ellie Duran MD Chief Complaint New patient visit for dysuria. History of Present Illness Testing results: PVR by bladder scan=31ml and PVR results available and reviewed, but UA results not available. 58 y/o presents as a self referral for LUTS. Was repeatedly going to urgent care for UTI symptoms starting in october 2022. Prior to that had never had a UTI in her life. Not currently having bladder symptoms. Resolved after UTI was treated. Saw Dr. Gonzalez. Of note, moving in with her boyfriend soon and is stressed about the moving logistics. Wondering if this is related to her bladder symptoms. Also significant pain with intercourse x the past 1 year. The following were reviewed to gain additional history: External notes: Derian note from 01/21/23 Test results: renal ultrasound 01/10/23, negative culture 10/23/2022, 12/23/2022, negative STI screening at that time too She describes the following pelvic floor symptoms: Prolapse symptoms: Bulge (Y/N): no, but pressure sensation Splinting to urinate (Y/N): no Splinting for bowel movements (Y/N): no Bladder symptoms Stress incontinence (Y/N): no Urge incontinence (Y/N): no Frequency (Y/N, how often): no Urgency (Y/N): yes Nocturia (Y/N, how many times): yes, once per night Incomplete emptying (Y/N): no Pain with urination (Y/N): no, but burning after urination Excessive fluid intake (Y/N): 64-93 oz history Recurrent UTI (Y/N): no Hematuria (Y/N): remote history Stones (Y/N): no Kidney disease (Y/N): no Bowel symptoms Regular (Y/N): yes Diarrhea (Y/N): no Constipation (Y/N): yes, manages with miralax Fecal incontinence (Y/N): no Flatus incontinence(Y/N): no Fecal urgency (Y/N): no Medical and surgical history notable for: PMH n/a Cholecystectomy 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 Issues? (Y/N): no, burning with intercourse over the past year Number of vaginal deliveries: 0 Number of c-sections: 0 Screening: Colonoscopy up to date (Y/N): yes Mammogram up to date (Y/N): yes Review of Systems Constitutional: No fever, No chills and No fatigue. Eyes: No vision problems and No dryness of the eyes. ENT: No dry mouth, No hearing loss and No nosebleeds. Cardiovascular: No chest pain, No palpitations and No orthopnea. Respiratory: No shortness of breath, No cough and No wheezing. Gastrointestinal: No abdominal pain, No constipation, No nausea, No diarrhea, No vomiting and No melena. Genitourinary: As noted in HPI. Musculoskeletal: No back pain, No myalgias, No muscle weakness, No joint swelling and No leg edema. Integumentary: No rashes, No skin lesion and No itching. Neurological: No headache, No numbness and No dizziness. Psychiatric: No sleep disturbances, No anxiety and No depression. Endocrine: No hot flashes, No loss of hair and No hirsutism. Hematologic/Lymphatic: No swollen glands, No tendency for easy bleeding and No tendency for easy bruising. All other systems have been reviewed and are negative for complaint. Active Problems Problems David (more content not included)... Normal [facility] URINALYSISon 02-08-2023 Appearance (U) CLEAR Normal CLEAR [facility] Comment on above: Performed By: #### U A #### [address] [address] Bilirubin Ql (U) Negative Normal NEGATIVE [facility] Comment on above: Performed By: #### U A #### [address] [address] Color (U) Colorless Normal STRAW,YELLOW [facility] Comment on above: Performed By: #### U A #### [address] [address] Glucose Ql (U) Negative Normal NEGATIVE [facility] Comment on above: Performed By: #### U A #### [address] [address] Hemoglobin Ql (U) Negative Normal NEGATIVE [facility] Comment on above: Performed By: #### U A #### [address] [address] Ketones Ql (U) Negative Normal NEGATIVE [facility] Comment on above: Performed By: #### U A #### [address] [address] Leukocyte esterase Test strip Ql (U) Negative Normal NEGATIVE [facility] Comment on above: Performed By: #### U A #### [address] [address] Nitrite Ql (U) Negative Normal NEGATIVE [facility] Comment on above: Performed By: #### U A #### [address] [address] pH (U) 7.0 [pH] Normal 5.0 - 8.0 [facility] Comment on above: Performed By: #### U A #### [address] [address] Protein Ql (U) Negative Normal NEGATIVE [facility] Comment on above: Performed By: #### U A #### [address] [address] Specific gravity (U) [Rel density] 1.005 Normal 1.005 - 1.035 [facility] Comment on above: Performed By: #### U A #### [address] [address] Urobilinogen (U) [Mass/Vol] mg/dL Normal 0.0 - 1.9 [facility] Comment on above: Performed By: #### U A #### [address] [address] Office Visit (Urology)on Follow-up visit Diagnoses/Problems Assessed Recurrent UTI (599.0) (N39.0) Nocturia (788.43) (R35.1) Former smoker (V15.82) (Z87.891) Urinary frequency (788.41) (R35.0) Patient Discussion/Summary Treatment options for LUTS reviewed Discussed timed voiding. Discussed fluid and caffeine intake Pelvic floor exercises discussed. Pros/cons of PT discussed.. Questions answered COntinue UroGesic Blue U/S reviewed Lifestyle change to help prevent UTIs discussed. Encouraged fluid intake. Check Cx if Sx develop TheraCran given F/U 6 months with UA virtual Chief Complaint Renal u/s results History of Present IllnessPatient is here for renal U/S results. Hx of recurrent UTI'S. U/S was normal. She did not want cysto. Chronic LUT'S sx are mild and stable. Denies urgency and frequency. Denies dysuria. Denies hematuria. Nocturia x1. No medication for LUT'S. Review of Systems Constitutional: No fever, No chills. Eye: Negative. Ear/Nose/Mouth/Throat: Negative. Respiratory: No shortness of breath, No cough. Cardiovascular: No chest pain, No peripheral edema. Gastrointestinal: No nausea, Genitourinary: Negative except as documented in history of present illness. Hematology/Lymphatics: Patient denies being on blood thinners.. Endocrine: Negative. Immunologic: Not immunocompromised. Musculoskeletal: Negative Integumentary: Negative. Neurologic: Alert and oriented X4. Psychiatric: Negative. Active Problems Problems Hematuria (599.70) (R31.9) Nocturia (788.43) (R35.1) Recurrent UTI (599.0) (N39.0) Urinary frequency (788.41) (R35.0) Surgical History Problems History of Cholecystectomy Family History Mother Family history of malignant melanoma (V16.8) (Z80.8) Father Family history of malignant neoplasm of prostate (V16.42) (Z80.42) Social History Problems Former smoker (V15.82) (Z87.891) Allergies Medication Vicodin TABS Recorded By: Jeanna Clark; 01/07/2023 7:36:52 AM Current Meds Medication NameInstruction Urogesic-Blue 81.6 MG Oral TabletTake 1 tablet daily Vitals Vital Signs Recorded: 21Jan2023 07:46AM Heart Rate67 Yzzrmokp600 Jdbtjtjte81 Xdsxfo391 lb 0.2 oz BMI Lgeeefnbka44.8 kg/m2 BSA Calculated2.03 Tobacco Useb) No PHQ-2 Patient Declined/Screening not indicatedYes Falls Screening (Age 18+)a) No falls within the last year Physical Exam A/O x 3 in No apparent distress Constitutional: General appearance normal Respiratory: Respiratory effort is normal Gastrointestinal:Abdome n is not tender Genitourinary: Kidneys: Not palpable Bilaterally Bladder: Not palpable or tender Signatures Electronically signed by : Uma Gonzalez II, MD; Jan 21 2023 8:04AM EST (Author) Normal [facility] Tobacco Screening.on 023 Fall risk assessment a) No falls within the last year TY-Effumjq-Chd land Work Phone: Tobacco use status [facility]PHS b) No ZH-Syuekcj-Fer land Work Phone: Tobacco Screening. Yes MP-Uro logyAgFlow Phone: Radiologyon 01-10-2023 US Kidney - bilateral Normal OP-Cvarrvm-IhtIntellectSpace Phone: IO UA (automated w/o microsc opy)on 01-07-2023 Protein (U) [Mass/Vol] Negative XE-Vtovksq-Ovg land Work Phone: IO UA (automated w/o microscopy) Negative IZ-Wczffuj-VauIntellectSpace Phone: IO UA (automated w/o microscopy) Normal (0.2-1.0 mg/dl) MP-Urolog yAgFlow Phone: IO UA (automated w/o microscopy) 5.5 1 DO-Zbswgtm-YsiIntellectSpace Phone: IO UA (automated w/o microscopy) Trace AF-Hjkzrdn-LhmIntellectSpace Phone: IO UA (automated w/o microscopy) 1.025 1 EH-Kgjlkcw-YcjIntellectSpace Phone: IO UA (automated w/o microscopy) Clear HASH Phone: IO UA (automated w/o microscopy) Yellow ZM-Pdfqzjy-ZcsIntellectSpace Phone: Office Visit (Urology)on Follow-up visit Diagnoses/Problems Assessed Nocturia (788.43) (R35.1) Recurrent UTI (599.0) (N39.0) Urinary frequency (788.41) (R35.0) Patient Discussion/Summary U/S and Cysto scheduled Treatment options for LUTS reviewed Discussed timed voiding. Discussed fluid and caffeine intake Urogesic Blue Rx given Lifestyle change to help prevent UTIs discussed. Encouraged fluid intake. Discussed prophylaxis F/U cysto after U/S Chief Complaint Establishing with Recurrent UTI's History of Present IllnessPatient is here to establish for Recurrent UTI's. She states this started in October. She states her sx are usually dysuria, and frequency. LUTs are chronic and mild. Denies frequency and urgency. Denies dysuria and hematuria.. Nocturia x1.. Caffeine does worsen LUTs.. No medications for LUTs..No hx of kidney stones. Review of Systems Constitutional: No fever, No chills. Eye: Negative. Ear/Nose/Mouth/Throat: Negative. Respiratory: No shortness of breath, No cough. Cardiovascular: No chest pain, No peripheral edema. Gastrointestinal: No nausea, Genitourinary: Negative except as documented in history of present illness. Hematology/Lymphatics: Patient denies being on blood thinners.. Endocrine: Negative. Immunologic: Not immunocompromised. Musculoskeletal: Negative Integumentary: Negative. Neurologic: Alert and oriented X4. Psychiatric: Negative. Surgical History Problems History of Cholecystectomy Family History Mother Family history of malignant melanoma (V16.8) (Z80.8) Father Family history of malignant neoplasm of prostate (V16.42) (Z80.42) Social History Problems Former smoker (V15.82) (Z87.891) Allergies Medication Vicodin TABS Recorded By: Jeanna Clark; 01/07/2023 7:36:52 AM Current Meds Medication NameInstruction No Reported Medications Vitals Vital Signs Recorded: 07Jan2023 07:35AM Heart Rate64 Yyxbkrwo501 Jbchfbfrd92 Height5 ft 8 in Ugyasp960 lb 4 oz BMI Ynbwnesmxh21.38 kg/m2 BSA Calculated2.01 Tobacco Useb) No PHQ-2 #1. Over the last 2 weeks have you felt down, depressed or hopeless? (If yes, answer PHQ-9 below)No PHQ-2 #2. Over the last 2 weeks have you felt little interest or pleasure in doing things? (If yes, answer PHQ-9 below)No Falls Screening (Age 18+)a) No falls within the last year Physical Exam A/O x 3 in No apparent distress Constitutional: General appearance normal Respiratory: Respiratory effort is normal Gastrointestinal:Abdome n is not tender Genitourinary: Kidneys: Not palpable Bilaterally Bladder: Not palpable or tender Signatures Electronically signed by : Uma Gonzalez II, MD; Jan 07 2023 7:52AM EST (Author) Normal [employer] Tobacco Screening.on 023 Adult depression screening assessment No ZB-Mdgsvmf-Yjq land Work Phone: Fall risk assessment a) No falls within the last year RD-Whezcdl-Lbp land Work Phone: Tobacco use status CPHS b) No XG-Yjnnnvl-Bls land Work Phone: Cult, Urineon 12-23-2022 Bacteria identified Cx Nom (U) GU-Ivbvncc-Qfv land Work Phone: Provider Note - ED v3on Provider Note - ED v3 Provider Note: Chart Review HISTORY OF PRESENTING ILLNESS THOM is a 57 year old Female and was seen by me at 23-Dec-2022 16:59. The historian is the patient. Triage Information: Most recent Vital Sign Value Date PAST MEDICAL HISTORY ALLERGIES/INTOLERANCES: No Known Allergies HEALTH HISTORY: No known health issues. Follows with CHAN Carrillo. Family history: no pertinent history. Social history: Is sexually active - in a monogamous relationship x 2 years. OUTPATIENT MEDICATIONS: Home Medications Review Status for Reconciliation: Complete Med Status: Patient Currently Takes Medications Drug Name: VITAMIN D Instructions: null Drug Name: Vitamin C Instructions: null Drug Name: biotin Instructions: null Drug Name: COLLAGEN Instructions: null Drug Name: cephalexin 500 mg oral capsule Instructions: 1 cap(s) orally 2 times a day x 7 days. Take with food. SIGNIFICANT EVENTS: No known significant events or known past surgical history. CRITICAL CARE RESULTS: Recent Lab Results: Urinalysis today was unremarkable - see flowsheet. VITAL SIGNS: T PRBP SpO2O2(LPM) %FiO2 Method 23-Dec-2022 16:30:[id number] 98 MDM MDM/ED COURSE: This note was generated with voice recognition software and may contain errors including spelling, grammar, syntax, and misrecognization of what was dictated CHIEF COMPLAINT Dysuria, urinary frequency HISTORY OF PRESENT ILLNESS Patient presents for evaluation of dysuria - sxs started on Tuesday. Has had burning with urination, urinary frequency, urgency, and mild suprapubic discomfort. Denies fever/chills, blood in urine, malaise, lethargy, nausea/vomiting, bloating, abdominal distention/pain, back/flank pain, change in bowel habits, and vaginal symptoms. Has noticed a foul odor of her urine. Patient reports has had similar symptoms in the past and was diagnosed with a UTI. Has not tried any OTC medications for her symptoms. She denies any possibility of STDs - reports is in a monogamous relationship x3 years and had negative STD testing <3 months ago. Follows with CHAN Carrillo. REVIEW OF SYSTEMS 10 systems reviewed negative with exception of history of present illness listed above PHYSICAL EXAMINATION General: Pleasant, well-nourished female; alert and oriented, in no acute distress. Sitting comfortably on exam table. Eyes: Non-icteric, conjunctiva clear. Pupils equal, round and reactive to light. HENT: Normocephalic. Oral mucosa moist. Neck: Supple. No lymphadenopathy. Respiratory: Lungs are clear to auscultation; no wheezes, rhonchi, or rales. Respirations unlabored, Breath sounds are equal, Symmetrical chest wall expansion. Cardiovascular: Regular rate, Regular rhythm. Normal S1S2. No m/r/g. Gastrointestinal: Soft, non-tender, non-distended; no palpable masses or organomegaly. + mild L sided suprapubic tenderness. Bowel sounds normoactive. No CVA tenderness. Musculoskeletal: Grossly normal; appropriate for age. Integumentary: Sherburn, warm, dry, and intact. No rashes or skin discoloration appreciated. Good skin turgor. Neurologic: Alert and oriented; grossly intact. Cognition and Speech: Oriented, Speech clear and coherent. Psychiatric: Cooperative, Appropriate mood & affect. MEDICAL DECISION MAKING Course: Worsening; stable. Impression/Plan: Unclear etiology for symptoms at this point. Discussed multiple potential causes for symptoms, as today's UA was unremarkable. Patient feels strongly that urinary symptoms are the same as when she has been dx'd with UTIs in the past - she requests empiric treatment as we await results of urine culture. Agreed to rx Keflex, but discussed importance of f/u with PCP (and considering establishing with a [facility]) first thing next week, as she may need further evaluation, as her last urine culture at our office indicated no bacterial growth. Instructed to begin antibiotic DANIELLA (reviewed expectations and common side effects of treatment), and complete full course of medication (unless otherwise discussed after results of urine culture have been received), even if symptoms resolve more quickly. Also advised to push fluids, rest, and to use appropriate over the counter medications for management of symptoms - cranberry juice/pills and pyridium may be helpful. Advised to follow-up with primary care provider or ER DANIELLA if develops fever/chills, body aches, malaise, back/abdominal pain, nausea/vomiting, etc, or if additional concerns/red flags develop. Reviewed strategies for UTI prevention, as well as importance of staying up to date with [facility] check-ups - reports has not had a pap smear/pelvic exam with a specialist in years. Patient agreed with plan of care; questions were encouraged and answered. Sending urine for culture - will contact with results/recommendations . Problem: burning with urination, uri (more content not included)... Normal [facility] URINE CULTURE,BACTERIALon URINE CULTURE,BACTERIAL PATIENT: THOM SPARKS LOCATION: [facility] BILL#: [id number] : 65 AGE: SEX: F ORDERED BY: MARIANA WHITING SOURCE: URINE COLLECTED: 12/23/22 17:32 ANTIBIOTICS AT ADELSO.: RECEIVED : 12/24/22 01:37 SITE: Clean Catch/Voided R E S U L T S URINE CULTURE,BACTERIAL FINAL 12/24/22 18:03 NO SIGNIFICANT GROWTH. Normal [facility] Comment on above: Performed By: #### U [facility] #### [facility] [address] [place] [address] GC + CHLAMYDIA BY AMPLIFIED DETECTIONon 10-25-2022 CHLAMYDIA TRACH.,AMPLIFIED Negative Normal Negative [facility] Comment on above: Result Comment: The APTIMA Combo 2 assay is FDA-approved for Chlamydia trachomatis and Neisseria gonorrhoeae testing on female endocervical and vaginal swabs, ThinPrep liquid pap samples, male urine samples and urethral swabs. Performance characteristics for Chlamydia trachomatis and Neisseria gonorrhoeae testing on specific zcq-JCZ-jxnyjgxy sample types (female urine samples) have been validated by [facility]. This laboratory is certified by CLIA to perform high complexity testing. Samples from all other sites are not validated for this method. Performed By: #### [facility] #### [facility] [address] [place] [id number] N.GONORRHEA,AMPLIF IED Negative Normal Negative [facility] Comment on above: Result Comment: The APTIMA Combo 2 assay is FDA-approved for Chlamydia trachomatis and Neisseria gonorrhoeae testing on female endocervical and vaginal swabs, ThinPrep liquid pap samples, male urine samples and urethral swabs. Performance characteristics for Chlamydia trachomatis and Neisseria gonorrhoeae testing on specific ajf-UOX-okonyygx sample types (female urine samples) have been validated by [facility]. This laboratory is certified by CLIA to perform high complexity testing. Samples from all other sites are not validated for this method. Performed By: #### [facility] #### [facility] [address] [place] [address] TRICHOMONAS,NUCLEIC ACID DET ECTIONon 10-24-2022 TRICHOMONAS VAGINALIS Negative Normal Negative [facility] Comment on above: Result Comment: The APTIMA Trichomonas vaginalis assay is FDA-approved for testing on female endocervical swabs, vaginal swabs, and ThinPrep liquid pap samples. Performance characteristics for Trichomonas vaginalis on specific bid-UUW-mgtewwyg sample types (female and male urine and male urethral swabs) have been validated by [facility]. This laboratory is certified by CLIA to perform high complexity testing. Samples from all other sites are not validated for this method. Performance characteristics for Trichomonas Vaginalis testing on urine samples has been validated by [facility]. Testing on this sample type is not FDA-approved, but such approval is not necessary. This laboratory is certified by CLIA to perform high complexity testing. Performed By: #### T SAMMIE #### [facility] [address] [place] [address] VAGINITIS GRAM STAIN FOR CINDY TERIAL VAGINOSIS + YEASTon 10-24-2022 CLUE CELLS ABSENT Normal [facility] Comment on above: Performed By: #### G [facility] #### [facility] [address] [place] [address] SHRUTHI SCORE 4 Abnormal [facility] Comment on above: Result Comment: Inte rpretation of the Shruthi Score 0-3.....Normal vaginal microbiota 4-6.....Intermediate results 7-10....Bacterial vaginosis Performed By: #### G [facility] #### [facility] [address] [place] [address] VAGINITIS-BV+YEAST INTERPRETATION SEE BELOW Normal [facility] Comment on above: Result Comment: Lact obacilli are decreased, but significant abnormal microbiota are absent, which results in a Shruthi score interpretation of intermediate. Performed By: #### G [facility] #### [facility] [address] [place] [address] Yeast LM Ql (Urine sed) ABSENT Normal [facility] Comment on above: Performed By: #### G SVAG #### [facility] [address] [place] [address] GC + CHLAMYDIA BY AMPLIFIED DETECTIONon 10-23-2022 CHLAMYDIA TRACH.,AMPLIFIED Canceled Normal [facility] Comment on above: Order Comment: TEST GC + CHLAMYDIA BY AMPLIFIED DETECTION WAS CANCELLED, 10/23/2022 16:49 clerical error. Result Comment: The APTIMA Combo 2 assay is FDA-approved for Chlamydia trachomatis and Neisseria gonorrhoeae testing on female endocervical and vaginal swabs, ThinPrep liquid pap samples, male urine samples and urethral swabs. Performance characteristics for Chlamydia trachomatis and Neisseria gonorrhoeae testing on specific ase-KYN-qqqasbtx sample types (female urine samples) have been validated by [facility]. This laboratory is certified by CLIA to perform high complexity testing. Samples from all other sites are not validated for this method. Performed By: #### G [facility] #### [facility] [address] [place] [address] N.GONORRHEA,AMPLIF IED Canceled Normal [facility] Comment on above: Order Comment: TEST GC + CHLAMYDIA BY AMPLIFIED DETECTION WAS CANCELLED, 10/23/2022 16:49 clerical error. Result Comment: The APTIMA Combo 2 assay is FDA-approved for Chlamydia trachomatis and Neisseria gonorrhoeae testing on female endocervical and vaginal swabs, ThinPrep liquid pap samples, male urine samples and urethral swabs. Performance characteristics for Chlamydia trachomatis and Neisseria gonorrhoeae testing on specific bip-QRY-qyedxwdg sample types (female urine samples) have been validated by [facility]. This laboratory is certified by CLIA to perform high complexity testing. Samples from all other sites are not validated for this method. Performed By: #### G [facility] #### [facility] [address] [place] [address] Provider Note - ED v3on 10-14 Provider Note - ED v3 Provider Note: Chart Review HISTORY OF PRESENTING ILLNESS THOM is a 57 year old Female and was seen by me at 23-Oct-2022 14:06. The historian is the patient. Triage Information: Most recent Vital Sign Value Date PAST MEDICAL HISTORY ALLERGIES/INTOLERANCES: No Known Allergies HEALTH HISTORY: No known health issues. Family history: no pertinent history. Social history: Is sexually active - in a monogamous relationship x 2 years. OUTPATIENT MEDICATIONS: Home Medications Review Status for Reconciliation: Incomplete Med Status: Incomplete Medication History Drug Name: Macrobid 100 mg oral capsule Instructions: 1 cap(s) orally 2 times a day SIGNIFICANT EVENTS: No known/pertinent significant events or known/pertinent past surgical history. 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 VITAL SIGNS: T PRBP SpO2O2(LPM) %FiO2 Method 23-Oct-2022 13:19:[id number] 98 MDM MDM/ED COURSE: This note was generated with voice recognition software and may contain errors including spelling, grammar, syntax, and misrecognization of what was dictated CHIEF COMPLAINT vaginal irritation vs burning with urination HISTORY OF PRESENT ILLNESS Patient presents for re-evaluation - she was seen here by another provider on 10/17/22 - was treated for a UTI with Macrobid. UA at that point showed small leuks and trace blood; urine was not sent for culture. She reports has taken medication as directed, and symptoms have waxed and waned since then - has continued to have burning sensation both when urinating, as well as irritation that does not seem to be related to urination. Thinks it might be her vaginal area that is actually irritated. Denies any sores/rashes; admits to noticing a foul vaginal odor recently. Reports she had urinary frequency and urgency prior to taking the Macrobid, but these have resolved. Denies any vaginal discharge, bleeding, or itching. Has not had a menses in ~8 years. Denies any fever/chills, n/v, back pain, blood in urine, malaise, lethargy, bloating, abdominal distention or pain, pelvic pain, and change in bowel habits. Denies any previous history of UTIs or vaginal infections. Has been taking Azo which seems to be temporarily helpful for symptoms; has not tried any other OTC medications or conservative measures for her symptoms. Reports is in a monogamous relationship with her partner of 2 years. REVIEW OF SYSTEMS 10 systems reviewed negative with exception of history of present illness listed above PHYSICAL EXAMINATION General: Pleasant, well-nourished female; alert and oriented, in no acute distress. Sitting comfortably on exam table. Eyes: Pupils equal, round and reactive to light. Eyes non-icteric, conjunctiva clear. HENT: Normocephalic. Oral mucosa moist. Neck: Supple. No lymphadenopathy. Respiratory: Lungs are clear to auscultation; no wheezes, rhonchi, or rales. Respirations unlabored, Breath sounds are equal, Symmetrical chest wall expansion. Cardiovascular: Regular rate, Regular rhythm. Normal S1S2. No m/r/g. Gastrointestinal: Soft, non-tender, non-distended; no palpable masses or organomegaly. No suprapubic tenderness. Bowel sounds normoactive. No CVA tenderness Genitourinary/Pelvic: Inner labia minora very mildly injected but otherwise normal appearing external female genitalia - no tenderness to palpation. No lesions or other abnormalities noted. No palpable adnexal masses or tenderness. Normal vaginal epithelium. Scant amount of clear discharge noted. Normal appearing cervix - no lesions or erythema; no cervical motion tenderness. Uterus is anterior, midline, smooth, not enlarged, and non-tender. No anoperineal lesions. Musculoskeletal: Grossly normal; appropriate for age. Integumentary: Sherburn, warm, dry, and Intact. No rashes or skin discoloration appreciated. Good skin turgor. Neurologic: Alert and oriented; grossly intact. Cognition and Speech: Oriented, Speech clear and coherent. Psychiatric: Cooperative, Appropriate mood & affect. MEDICAL DECISION MAKING Course: Worsening; stable. Impression/Plan: No red flags on exam today. Pt feels strongly that sxs are more vaginal in nature now; UA today was unremarkable, although recently finished course of Macrobid. Based on her description of symptoms and today's exam, issue seems to be more vaginal in nature although symptoms not entirely consistent, so still some concern for residual UTI. Discussed rx for 2nd course of antibiotic but patient states would prefer to wait for results of urine culture and vaginal testing results prior to any type of further treatment. Low suspicion for yeast infection at this point but could have BV - no microscope available at this facility to rule in/out BV, but will send swabs for lab testing (more content not included)... Normal [facility] TRICHOMONAS,NUCLEIC ACID DET ECTIONon 10-23-2022 TRICHOMONAS VAGINALIS Canceled Normal [facility] Comment on above: Order Comment: TEST TRICHOMONAS,NUCLEIC ACID DETECTION WAS CANCELLED, 10/23/2022 16:49 clerical error. Result Comment: The APTIMA Trichomonas vaginalis assay is FDA-approved for testing on female endocervical swabs, vaginal swabs, and ThinPrep liquid pap samples. Performance characteristics for Trichomonas vaginalis on specific irt-GPH-tteterqz sample types (female and male urine and male urethral swabs) have been validated by [facility]. This laboratory is certified by CLIA to perform high complexity testing. Samples from all other sites are not validated for this method. Performed By: #### T SAMMIE #### [facility] [address] [place] [address] Lab Specimen Source Urine Normal [facility] Comment on above: Performed By: #### T SAMMIE #### [facility] [address] [place] [address] Order Comment: TEST GC + CHLAMYDIA BY AMPLIFIED DETECTION WAS CANCELLED, 10/23/2022 16:49 clerical error. Performed By: #### G [facility] #### [facility] [address] [place] [address] Order Comment: TEST TRICHOMONAS,NUCLEIC ACID DETECTION WAS CANCELLED, 10/23/2022 16:49 clerical error. URINE CULTURE,BACTERIALon URINE CULTURE,BACTERIAL TEST URINE CULTURE,BACTERIAL WAS CANCELLED, 10/23/2022 16:49 clerical error. PATIENT: THOM SPARKS LOCATION: [facility] BILL#: [id number] : 65 AGE: SEX: F ORDERED BY: MARIANA WHITING SOURCE: URINE COLLECTED: 10/23/22 15:04 ANTIBIOTICS AT ADELSO.: RECEIVED : SITE: Unspecified R E S U L T S URINE CULTURE,BACTERIAL CANCELLED 10/23/22 16:49 Normal [facility] Comment on above: Performed By: #### U [facility] #### [facility] [address] [place] [address] URINE CULTURE,BACTERIAL PATIENT: THOM SPARKS LOCATION: [facility] BILL#: [id number] : 65 AGE: SEX: F ORDERED BY: MARIANA WHITING SOURCE: URINE COLLECTED: 10/23/22 15:04 ANTIBIOTICS AT ADELSO.: RECEIVED : 10/23/22 22:46 SITE: Clean Catch/Voided R E S U L T S URINE CULTURE,BACTERIAL FINAL 10/24/22 15:17 NO GROWTH Normal [facility] Comment on above: Performed By: #### U RINC #### [facility] [address] [place] [address] VAGINITIS GRAM STAIN FOR CINDY TERIAL VAGINOSIS + YEASTon 10-23-2022 CLUE CELLS Canceled Normal [facility] Comment on above: Order Comment: TEST VAGINITIS GRAM STAIN FOR BACTERIAL VAGINOSIS + YEAST WAS CANCELLED, 10/23/2022 16:49 clerical error. Performed By: #### G SV[facility] #### [facility] [address] [place] [address] SHRUTHI SCORE Canceled Normal [facility] Comment on above: Order Comment: TEST VAGINITIS GRAM STAIN FOR BACTERIAL VAGINOSIS + YEAST WAS CANCELLED, 10/23/2022 16:49 clerical error. Result Comment: Inte rpretation of the Shruthi Score 0-3.....Normal vaginal microbiota 4-6.....Intermediate results 7-10....Bacterial vaginosis Performed By: #### G SV[facility] #### [facility] [address] [place] [address] Yeast LM Ql (Urine sed) Canceled Normal [facility] Comment on above: Order Comment: TEST VAGINITIS GRAM STAIN FOR BACTERIAL VAGINOSIS + YEAST WAS CANCELLED, 10/23/2022 16:49 clerical error. Performed By: #### G [facility] #### [facility] [address] [place] [address] Provider Note - ED v3on 12-0 Provider Note - ED v3 Provider Note: Chart Review: ED NOTES ED NOTES: Female presents for evaluation of dysuria. Patient reports several days of increased urinary frequency, mild suprapubic discomfort, and change in urine color. Patient denies fever, nausea, vomiting, or other constitutional signs and symptoms. Patient reports similar episodes in the past diagnosed as urinary tract infections. No other complaints. HISTORY OF PRESENTING ILLNESS THOM is a 57 year old Female and was seen by me at 16-Oct-2022 08:32. Triage Information: Most recent Vital Sign Value Date PAST MEDICAL HISTORY ALLERGIES/INTOLERANCES: No Known Allergies HEALTH HISTORY: No documented data. OUTPATIENT MEDICATIONS: Home Medications Review Status for Reconciliation: Complete Med Status: Patient Currently Takes Medications Drug Name: Macrobid 100 mg oral capsule Instructions: 1 cap(s) orally 2 times a day SIGNIFICANT EVENTS: No documented data. 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 GASTROINTESTINAL: Abdomen soft, non-distended, no rebound, no guarding, + suprapubic tenderness. Bowel sounds normal in all 4 quadrants. GENITOURINARY: No discharge, no lesions. No CVA tenderness. NEUROLOGICAL: Alert and oriented, no focal deficits, no motor or sensory deficits. SKIN: Skin normal color for race, warm, dry and intact. No evidence of trauma. PSYCHIATRIC: Alert and oriented to person, place, time/situation. normal mood and affect. No apparent risk to self or others. CRITICAL CARE VITAL SIGNS: T PRBP SpO2O2(LPM) %FiO2 Method 16-Oct-2022 08:10:[id number] 98 MDM MDM/ED COURSE: Discussed Findings with: patient Data Reviewed: vital signs Treatment Plan: Rx Macrobid. Urinalysis with small leukocytes, negative nitrites, uro 0.2, negative protein, ph 6.0, trace intact blood, sg 1.020, negative ketones, negative bili, negative glucose. Encouraged patient increase water intake, avoid caffeine/energy drinks, void after intercourse, wipe front to back after voiding and bowel movements, avoid baths/hot tubs/pools, avoid tight fitting garments, empty bladder frequently. Patient's clinical presentation is otherwise unremarkable at this time. Patient is discharged with instructions to follow-up with primary care or seek emergency medical attention for worsening symptoms or any new concerns. DISPOSITION Diagnosis/Annotation: ED Dx Name:Javon with urination Code:R30.0 Disposition: discharged Type: home CONSULT CRITICAL CARE TIME Is this a critically ill patient: no Electronic Signatures: Osvaldo Yost (WARHEAD MAINTENANCE SPECIALIST-DIRECTOR OF RESIDENCE LIFE) (Signed 16-Oct-2022 10:47) Authored: ED Notes, HPI, PMH, ROS, PE, Results/Vital Signs, MDM/ED Course, Clinical Impression, Attestation, Chart Review, Scores Last Updated: 16-Oct-2022 10:47 by Osvaldo Yost (WARHEAD MAINTENANCE SPECIALIST-DIRECTOR OF [employer]IDENCE LIFE) [facility] 11-21-2018 Interpretation and review of laboratory results Abnormal Invalid Interpretation Code RADIOLOGY IMPRESSION: 1. The oval-shaped 7 mm focal asymmetry posterior right breast shows generally benign mammographic features, suggestive of an intramammary lymph node. 2. No ultrasound correlate. The finding is probably benign and a repeat right breast mammogram is recommended in 6 months. The findings and recommendations were discussed with the patient at the time of service. BI-RADS 3 - Findings are probably benign. A short interval followup is recommended in 6 months. OVERALL ASSESSMENT- PROBABLY BENIGN A letter of notification will be sent to the patient regarding the results. Invalid Interpretation Code RADIOLOGY MAMMO DIAGNOSTIC RIG HT, US BREAST LIMITED UNILATERAL RIGHT CLINICAL STATEMENT: Follow-up abnormal screening mammogram. Focal asymmetry posterior right breast. COMPARISON: November 02, 2018. TECHNIQUE: Additional digital diagnostic right mammograms were obtained. Ultrasound of the right breast was performed. FINDINGS: DIAGNOSTIC RIGHT MAMMOGRAM: The additional views show a persistent oval-shaped focal asymmetry in the extreme posterior right breast at about the 9 o'clock or 10 o'clock position. Borders are generally circumscribed with a suspected peripheral notch of fat, suggesting an intramammary lymph node. There is no spiculation, architectural distortion or suspicious grouping of microcalcifications. ULTRASOUND RIGHT BREAST: No corresponding abnormality could be visualized with ultrasound. Upper outer quadrant of the right breast with attention to the mammographic finding shows no discrete mass, distortion of breast architecture or abnormal areas of acoustic shadowing. Invalid Interpretation Code RADIOLOGY MAMMO SCREENING BILATERALon 11-02-2018 IMPRESSION: Ovoid fo nickolas asymmetry in the far posterior aspect of the upper outer right breast. This region was not imaged on the prior study. Recommend spot compression views and possible ultrasound. BI-RADS 0 - Need additional imaging evaluation at this time. OVERALL ASSESSMENT- NEED ADDITIONAL IMAGING EVALUATION. A letter of notification will be sent to the patient regarding the results. Invalid Interpretation Code RADIOLOGY PROCEDURE: MAMMO SCREENING BILATERAL 11/02/2018 7:38 AM EST CLINICAL HISTORY: Screening. COMPARISON: 10/28/2016. TECHNIQUE: Routine MLO and CC views of the bilateral breasts were obtained. CAD was utilized. FINDINGS: BREAST DENSITY: Scattered fibroglandular densities. There is an ovoid focal asymmetry in the posterior aspect of the upper outer right breast. This region may not have been imaged on the prior study because of its far posterior location. There is no architectural distortion or suspicious microcalcifications in either breast. Invalid Interpretation Code RADIOLOGY XR Pelvis 1 or 2 Viewson XR Pelvis 1 or 2 Views Exam Date/Time:05/02/2018 18:35 EDTReason for Exam:M99.03 M99.04 M99.05ReportSTUDY:XR Pelvis 1 or 2 Views; 05/02/2018 6:35 pmINDICATION:M99.03 M99.04 M99.05.COMPARISON:None. 998ORDERING CLINICIAN:La Blood:Mild narrowing of both hip joints is seen consistent with early degenerative joint disease. There is prominence of the lateral aspects of the head/neck junctions in both femurs, suggesting femoroacetabular impingement. No periarticular calcification is present. The bony pelvis is intact. The iliotibial and ilioischial columns are normal.IMPRESSION:No acute disease.Bilateral mild hip osteoarthritis. FINAL REPORT Dictated: 05/03/2018 12:16 pm Se Arce MDigned (Electronic Signature): 05/03/2018 12:16 pmSigned by: Se Arce MD Technologist: [facility] XR Spine Lumbar w/ Obliqueso n 05-03-2018 XR Spine Lumbar w/ Obliques Exam Date/Time:05/02/2018 18:35 EDTReason for Exam:M99.03 M99.03 M99.05ReportSTUDY:XR Spine Lumbar w/ Obliques; 05/02/2018 6:35 pmINDICATION:M99.03 M99.03 M99.05.COMPARISON:None. 997ORDERING CLINICIAN:La GarcíaDINGIleana:The lumbar vertebrae are normal in height. Marked narrowing of L1-2 and L2-3 intervertebral disc is seen, secondary to degenerative disc disease. Mild narrowing of the L3-4 intervertebral disc is also present. No spondylolisthesis is present. Facetal hypertrophic changes are seen at L4-5 and L5-S1 levels. The pedicles are intact. A cholecystectomy clip is present.IMPRESSION:Mult ilevel degenerative disc disease, especially at L1-L2 and L2-L3 levels. Mild degenerative disc disease at L3-4. Multilevel facet arthropathy. FINAL REPORT Dictated: 05/03/2018 1:14 pm Se Arce MDigned (Electronic Signature): 05/03/2018 1:14 pmSigned by: Se Arce MD Technologist: [facility] Vital Signs Date Time Vital Sign Value Performing Clinician Facility 04-12-2025 09:160400 Body height 172.7 cm Maggie Walker MARIAM Work Phone: [facility] 04-12-2025 09:16-0400 Body mass index (BMI) [Ratio] 30.11 kg/m2 Maggie Walker MARIAM Work Phone: [facility] 04-12-2025 09:16-0400 Body weight 89.81 kg Maggie Walker DIRECTOR OF [employer] Work Phone: [facility] 04-12-2025 09:16-0400 Diastolic blood pressure 83 mm[Hg] Maggie Sprang DIRECTOR OF [employer] Work Phone: [facility] 04-12-2025 09:16-0400 Heart rate 65 /min Maggie Aleksandarang DIRECTOR OF [employer] Work Phone: [facility] 04-12-2025 09:16-0400 Systolic blood pressure 121 mm[Hg] Maggie Sprang DIRECTOR OF [employer] Work Phone: [facility] 02-21-2025 15:52-0400 Body mass index (BMI) [Ratio] 30.56 kg/m2 Maricel Walter MD Work Phone: [facility] 02-21-2025 15:52-0400 Body weight 91.17 kg Maricel Walter MD Work Phone: [facility] 02-21-2025 15:52-0400 Diastolic blood pressure 70 mm[Hg] Maricel Walter MD Work Phone: [facility] 02-21-2025 15:52-0400 Heart rate 60 /min Maricel Walter MD Work Phone: [facility] 02-21-2025 15:52-0400 SaO2% (BldA) [Mass fraction] 98 % Maricel Walter MD Work Phone: [facility] 02-21-2025 15:52-0400 Systolic blood pressure 122 mm[Hg] Maricel Walter MD Work Phone: [facility] 12-25-2024 08:20-0500 Body height 172.7 cm Maricel Walter MD Work Phone: [facility] 12-25-2024 08:20-0500 Body mass index (BMI) [Ratio] 30.68 kg/m2 Maricel Walter MD Work Phone: [facility] 12-25-2024 08:20-0500 Body weight 91.54 kg Maricel Walter MD Work Phone: [facility] 12-25-2024 08:20-0500 Diastolic blood pressure 70 mm[Hg] Maricel Walter MD Work Phone: [facility] 12-25-2024 08:20-0500 Heart rate 83 /min Maricel Walter MD Work Phone: [facility] 12-25-2024 08:20-0500 SaO2% (BldA) [Mass fraction] 98 % Maricel Walter MD Work Phone: [facility] 12-25-2024 08:20-0500 Systolic blood pressure 116 mm[Hg] Maricel Walter MD Work Phone: [facility] 12-11-2024 08:05-0500 Body height 172.7 cm Maricel Walter MD Work Phone: [facility] 12-11-2024 08:05-0500 Body mass index (BMI) [Ratio] 30.11 kg/m2 Maricel Walter MD Work Phone: [facility] 12-11-2024 08:05-0500 Body temperature 98.8 [degF] Maricel Walter MD Work Phone: [facility] 12-11-2024 08:05-0500 Body weight 89.81 kg Maricel Walter MD Work Phone: [facility] 12-11-2024 08:05-0500 Diastolic blood pressure 68 mm[Hg] Maricel Walter MD Work Phone: [facility] 12-11-2024 08:05-0500 Heart rate 88 /min Maricel Walter MD Work Phone: [facility] 12-11-2024 08:05-0500 SaO2% (BldA) [Mass fraction] 93 % Maricel Walter MD Work Phone: [facility] 12-11-2024 08:05-0500 Systolic blood pressure 110 mm[Hg] Maricel Walter MD Work Phone: [facility] 12-05-2024 15:32-0500 Body height 172.7 cm Connie Haddad CNP Work Phone: [facility] 12-05-2024 15:32-0500 Body mass index (BMI) [Ratio] 30.33 kg/m2 Connie Haddad CNP Work Phone: [facility] 12-05-2024 15:32-0500 Body temperature 99.3 [degF] Connie Haddad CNP Work Phone: [facility] 12-05-2024 15:32-0500 Body weight 90.49 kg Connie Haddad CNP Work Phone: [facility] 12-05-2024 15:32-0500 Diastolic blood pressure 57 mm[Hg] Connie Haddad CNP Work Phone: [facility] 12-05-2024 15:32-0500 Heart rate 95 /min Connie Haddad CNP Work Phone: [facility] 12-05-2024 15:32-0500 Respiratory rate 14 /min Connie Haddad CNP Work Phone: [facility] 12-05-2024 15:32-0500 SaO2% (BldA) [Mass fraction] 96 % Connie Haddad CNP Work Phone: [employer] [place] [facility] 12-05-2024 15:32-0500 Systolic blood pressure 120 mm[Hg] Connie Haddad CNP Work Phone: [facility] [place] 11-28-2023 14:28-0500 Body height 170.2 cm Sam Arias MD Work Phone: [employer] [facility] 11-28-2023 14:28-0500 Body mass index (BMI) [Ratio] 31.59 kg/m2 Sam Arias MD Work Phone: [employer] [place] [facility] 11-28-2023 14:28-0500 Body weight 91.49 kg Sam Arias MD Work Phone: [facility] 11-28-2023 14:28-0500 Diastolic blood pressure 78 mm[Hg] Sam Arias MD Work Phone: [facility] 11-28-2023 14:28-0500 Heart rate 63 /min Sam Arias MD Work Phone: [facility] [place] 11-28-2023 14:28-0500 Systolic blood pressure 115 mm[Hg] Sam Arias MD Work Phone: [facility] 01-21-2023 07:46-0500 Body mass index (BMI) [Ratio] 29.8 kg/m2 Kody Meade [employer] Work Phone: EC-Nsbqjvs-Iocuhpr Work Phone: 01-21-2023 07:46-0500 Body surface area Derived from formula 2.03 m2 Kody Meade [employer] Work Phone: XN-Icbatri-Nndbbtg Work Phone: 01-21-2023 07:46-0500 Body weight 88.91 kg Kody Meade [employer] Work Phone: KK-Pqewlwm-Lfhksxy Work Phone: 01-21-2023 07:46-0500 Diastolic blood pressure 81 mm[Hg] Kody Meade [employer] Work Phone: DY-Ovdofpz-Hqtcjlk Work Phone: 01-21-2023 07:46-0500 Heart rate 67 /min Kody Quintanillaufman Work Phone: RH-Crgiiph-Sxzbgwl Work Phone: 01-21-2023 07:46-0500 Systolic blood pressure 113 mm[Hg] Kody Quintanillaufman Work Phone: TE-Shmlrrf-Wxawdya Work Phone: 01-07-2023 07:35-0500 Body height 172.72 cm Kody Meade [employer] Work Phone: NP-Dbkaote-Mzlqesh Work Phone: 01-07-2023 07:35-0500 Body mass index (BMI) [Ratio] 29.38 kg/m2 Kody Meade [employer] Work Phone: ZA-Bqcgfam-Qqeenyo Work Phone: 01-07-2023 07:35-0500 Body surface area Derived from formula 2.01 m2 Kody Meade [employer] Work Phone: SP-Gudjnqe-Nylgebb Work Phone: 01-07-2023 07:35-0500 Body weight 87.66 kg Kody Meade [employer] Work Phone: OC-Tfpyqgg-Bwyioam Work Phone: 01-07-2023 07:35-0500 Diastolic blood pressure 73 mm[Hg] Kody Meade [employer] Work Phone: IA-Eyqneoq-Mivtlqo Work Phone: 01-07-2023 07:35-0500 Heart rate 64 /min Kody Meade [employer] Work Phone: WV-Oosmsyc-Xrnqhlr Work Phone: 01-07-2023 07:35-0500 Systolic blood pressure 116 mm[Hg] Kody Meade [employer] Work Phone: KH-Whrsrcs-Spxfgvq Work Phone: 10-23-2022 15:19-0500 Body height 170 cm No Pcp Required [facility] 10-23-2022 15:19-0500 Body temperature 98.06 [degF] No Pcp Required [facility] 10-23-2022 15:19-0500 Diastolic blood pressure 88 mm[Hg] No Pcp Required [facility] 10-23-2022 15:19-0500 Heart rate 90 /min No Pcp Required [facility] 10-23-2022 15:19-0500 Respiratory rate 16 /min No Pcp Required [facility] 10-23-2022 15:19-0500 SaO2% (BldA) [Mass fraction] 98 % No Pcp Required [facility] 10-23-2022 15:19-0500 Systolic blood pressure 135 mm[Hg] No Pcp Required [facility] 10-16-2022 10:10-0500 Body height 173 cm No Pcp Required [facility] 10-16-2022 10:10-0500 Diastolic blood pressure 69 mm[Hg] No Pcp Required [facility] 10-16-2022 10:10-0500 Heart rate 51 /min No Pcp Required [facility] 10-16-2022 10:10-0500 Respiratory rate 16 /min No Pcp Required [facility] 10-16-2022 10:10-0500 SaO2% (BldA) [Mass fraction] 98 % No Pcp Required [facility] 10-16-2022 10:10-0500 Systolic blood pressure 113 mm[Hg] No Pcp Required [facility] 11-20-2021 08:02-0500 Body height 171.5 cm Kiara SAENZ Work Phone: [facility] 11-20-2021 08:02-0500 Body mass index (BMI) [Ratio] 30.92 kg/m2 Kiara SAENZ Work Phone: [facility] 11-20-2021 08:02-0500 Body weight 90.95 kg Kiara White APRN-MARIAM Work Phone: [facility] 11-20-2021 08:02-0500 Diastolic blood pressure 75 mm[Hg] Kiara White APRN-MARIAM Work Phone: [facility] 11-20-2021 08:02-0500 Heart rate 71 /min Kiara SAENZ Work Phone: [facility] 11-20-2021 08:02-0500 SaO2% (BldA) [Mass fraction] 98 % Kiara Vasquezhart WARHEAD MAINTENANCE SPECIALIST-DIRECTOR OF [employer] Work Phone: [facility] 11-20-2021 08:02-0500 Systolic blood pressure 103 mm[Hg] Kiara White WARHEAD MAINTENANCE SPECIALIST-DIRECTOR [employer] Work Phone: [facility] 10-22-2021 08:06-0500 Body height 171.5 cm Kiara White WARHEAD MAINTENANCE SPECIALIST-DIRECTOR [employer] Work Phone: [facility] 10-22-2021 08:06-0500 Body mass index (BMI) [Ratio] 30.94 kg/m2 Kiara Gonzalo WARHEAD MAINTENANCE SPECIALIST-DIRECTOR [employer] Work Phone: [facility] 10-22-2021 08:06-0500 Body weight 90.99 kg Kiara White WARHEAD MAINTENANCE SPECIALIST-DIRECTOR [employer] Work Phone: [facility] 10-22-2021 08:06-0500 Diastolic blood pressure 73 mm[Hg] Kiara White WARHEAD MAINTENANCE SPECIALIST-DIRECTOR [employer] Work Phone: [facility] 10-22-2021 08:06-0500 Heart rate 64 /min Kiara Gonzalo WARHEAD MAINTENANCE SPECIALIST-DIRECTOR [employer] Work Phone: [facility] 10-22-2021 08:06-0500 Systolic blood pressure 107 mm[Hg] Kiara White APRN-DIRECTOR [employer] Work Phone: [facility] 09-18-2021 08:20-0400 Body height 171.5 cm Kiara Gonzalo WARHEAD MAINTENANCE SPECIALIST-DIRECTOR [employer] Work Phone: [facility] 09-18-2021 08:20-0400 Body mass index (BMI) [Ratio] 31.63 kg/m2 Kiara Gonzalo WARHEAD MAINTENANCE SPECIALIST-[employer]OR [employer] Work Phone: [facility] 09-18-2021 08:20-0400 Body weight 93.03 kg Kiara White APRN-DIRECTOR [employer] Work Phone: [facility] 09-18-2021 08:20-0400 Diastolic blood pressure 65 mm[Hg] Kiara White WARHEAD MAINTENANCE SPECIALIST-[employer]OR [employer] Work Phone: [facility] 09-18-2021 08:20-0400 Heart rate 58 /min Kiara White WARHEAD MAINTENANCE SPECIALIST-DIRECTOR [employer] Work Phone: [facility] 09-18-2021 08:20-0400 Systolic blood pressure 95 mm[Hg] Kiara White WARHEAD MAINTENANCE SPECIALIST-[employer]OR [employer] Work Phone: [facility] 03-05-2019 10:12-0400 BP Diastolic 73 mm[Hg] [facility] 03-05-2019 10:12-0400 BP Systolic 109 mm[Hg] [facility] 03-05-2019 10:12-0400 Pulse (Heart Rate) 60 /min [facility] 03-05-2019 10:12-0400 Pulse Oximetry 98 % [facility] 03-05-2019 10:12-0400 Respiratory Rate 17 /min [facility] 03-05-2019 09:51-0400 Body Temperature 98.1 [degF] [facility] 03-05-2019 08:48-0400 BMI (Body Mass Index) 30.11 kg/m2 [facility] 03-05-2019 08:48-0400 Height 172.7 cm [facility] 03-05-2019 08:48-0400 Weight 89.81 kg [facility] 02-05-2019 08:26-0400 BMI (Body Mass Index) 31.17 kg/m2 [facility] 02-05-2019 08:26-0400 Body Temperature 98.6 [degF] [facility] 02-05-2019 08:26-0400 BP Diastolic 77 mm[Hg] [facility] 02-05-2019 08:26-0400 BP Systolic 112 mm[Hg] [facility] 02-05-2019 08:26-0400 Height 172.7 cm [facility] 02-05-2019 08:26-0400 Pulse (Heart Rate) 64 /[facility] 02-05-2019 08:26-0400 Respiratory Rate 14 /min [facility] 02-05-2019 08:26-0400 [facility] 10-31-2018 11:12-0500 BMI (Body Mass Index) 31.35 kg/m2 Андрей [facility] Work Phone: 10-31-2018 11:12-0500 BP Diastolic 60 mm[Hg] [facility] Work Phone: 10-31-2018 11:12-0500 BP Systolic 100 mm[Hg] [facility] Work Phone: 10-31-2018 11:12-0500 Height 172.7 cm [facility] Work Phone: 10-31-2018 11:12-0500 Pulse (Heart Rate) 64 /min [facility] Work Phone: 10-31-2018 11:12-0500 Pulse Oximetry 98 % [facility] Work Phone: 10-31-2018 11:12-0500 Weight 93.53 kg [facility] Work Phone: Encounters Encounter Date Encounter Type Care Provider Facility Start: 04-12-2025 End: 04-12-2025 Office outpatient new 45 minutes Maggie Walker [facility] Work Phone: [facility] Comment on above: Menopausal symptoms (Primary Dx); Hair loss Start: 04-12-2025 End: 04-12-2025 ambulatory MAGGIE WALKER [facility] Start: 03-19-2025 End: 03-20-2025 ambulatory UNKNOWN PROVIDER Facility:[facility] Start: 03-18-2025 End: 03-18-[address] Maricel Walter MD Work Phone: [facility] Work Phone: Start: 03-18-2025 End: 03-18-2025 Patient encounter procedure LA KIDD DO -Radiology, [facility] Work Phone: Start: 03-18-2025 End: 03-18-2025 ambulatory Maricel Walter Facility:[facility] Start: 02-21-2025 End: 02-21-2025 Office outpatient visit 15 minutes Maricel Walter MD Work Phone: [facility] Comment on above: Abdominal pain, unsp ecified abdominal location (Primary Dx); Bloating; Nausea Start: 02-21-2025 End: 02-21-2025 ambulatory MARICEL Meade [facility]ulatory Start: 12-25-2024 End: 12-25-2024 Patient encounter status Maricel Walter MD Work Phone: [facility] Work Phone: Start: 12-25-2024 End: 12-25-2024 Periodic preventive med est patient 40-64yrs Maricel Walter MD Work Phone: [facility] Comment on above: Healthcare maintenan ce (Primary Dx) Start: 12-25-2024 End: 12-25-2024 ambulatory MARICEL Meade [facility] Start: 12-25-2024 End: 12-25-2024 Encounter for general adult medical examination without abnormal findings MARICEL Halina [facility] Start: 12-11-2024 End: 12-11-2024 Office outpatient new 30 minutes Maricel Walter MD Work Phone: [facility] Comment on above: Pneumonia due to inf ectious organism, unspecified laterality, unspecified part of lung (Primary Dx) Start: 12-11-2024 End: 12-11-2024 ambulatory MARICEL Meade [facility] Start: 01-22-2025 ambulatory CONNIE Scales [facility] Start: 12-05-2024 End: 12-05-2024 Office outpatient visit 15 minutes Conniehalina Haddad DIRECTOR OF [employer] Work Phone: [facility] Comment on above: Nausea and vomiting, unspecified vomiting type (Primary Dx); Acute midline low back pain without sciatica; Viral illness Start: 11-28-2023 End: 11-28-2023 Initial preventive medicine new patient 40-64yrs Sam Arias MD Work Phone: [facility] 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 Kody Quintanillaufman Facility:[id number] Start: 01-21-2023 Office outpatient vi sit 15 minutes Kody Ferris Work Phone: [facility] Work Phone: Start: 01-21-2023 ambulatory Mr. Kody Quintanillaufman Facility:[id number] Start: 01-12-2023 Chart Update Kody Ferris Work Phone: [facility] Work Phone: Start: 01-10-[address] [place] Facility:[id number] Start: 01-07-2023 Office outpatient ne w 30 minutes Kody Ferris Work Phone: [facility] Work Phone: Start: 01-07-2023 ambulatory Mr. Kody Ferris Facility:[id number] Start: 12-23-2022 End: 12-23-2022 Emergency department patient visit Mr. Kody Ferris Facility:[id number] Start: 10-23-2022 End: 10-23-2022 Emergency department patient visit Mariana Whiting [facility] Start: 10-16-2022 End: 10-16-2022 Emergency department patient visit Osvaldo Yost [facility] Start: 05-12-2022 End: 05-12-2022 Patient encounter procedure Bernie Mcnulty [facility] Start: 11-20-2021 End: 11-20-2021 Office outpatient visit 15 minutes Kiara White [employer] Work Phone: [facility] Comment on above: COVID-19 david fontaine (Primary Dx) Start: 10-22-2021 End: 10-22-2021 Office outpatient visit 15 minutes Kiara White [employer] Work Phone: [facility] Comment on above: Pure hypercholestero lemia (Primary Dx); BMI 31.0-31.9,adult Start: 09-18-2021 End: 09-18-2021 Office outpatient visit 25 minutes Kiara White [employer] Work Phone: [facility] Comment on above: Menopausal symptoms (Primary Dx); Pure hypercholesterolemia; BMI 31.0-31.9,adult Start: 01-21-2021 End: 01-21-2021 Orders Only Lois Thomason Work Phone: [facility] Start: 05-23-2019 End: 05-23-2019 Telephone encounter Chel [facility] Comment on above: Follow-up Start: 03-05-2019 End: 03-05-2019 Patient encounter procedure JONNATHAN AVENDAÑO [facility] Start: 03-05-2019 End: 03-05-2019 Patient encounter procedure Jonnathan Avendaño Work Phone: [facility] Comment on above: Encounter for screen ing colonoscopy Start: 02-05-2019 End: 02-05-2019 Office outpatient new 45 minutes La Patterson Work Phone: [facility] Comment on above: Encounter for screen ing colonoscopy (Primary Dx) Start: 01-15-2019 End: 01-15-2019 Telephone encounter Elidia Hoffmann [facility] Comment on above: Other Start: 11-21-2018 End: 11-21-2018 Patient encounter procedure Leslie Lott Work Phone: [facility] Ultrasound Comment on above: Arrived Start: 11-11-2018 End: 11-11-2018 Patient encounter procedure Josué Rao Facility:[facility] Start: 11-08-2018 End: 11-08-2018 Patient encounter procedure Андрей Bowman Work Phone: [facility] Comment on above: Appointment Start: 11-02-2018 End: 11-02-2018 Patient encounter procedure Leslie Lott Work Phone: [facility] Mammography Comment on above: Arrived Start: 10-31-2018 End: 10-31-2018 Office outpatient new 30 minutes Mcmechen A Colby Work Phone: [facility] Comment on above: Encounter for screen ing colonoscopy (Primary Dx) Start: 10-24-2018 End: 10-24-2018 Patient encounter procedure Annamarie Aurelio [facility] Comment on above: Other Start: 09-25-2018 End: 09-25-2018 Patient encounter procedure Other Other [facility] Start: 05-02-2018 End: 05-03-2018 Patient encounter procedure La Kidd Facility:[facility] Procedures Date Procedure Procedure Detail Performing Clinician Start: 03-18-2025 X-ray of lumbosacral spine Dr. Maricel Walter MD Work Phone: Start: 01-03-2025 Lipid 1996 panel - S vicky or Plasma Maricel Walter MD Work Phone: Start: 11-28-2023 Microscopic observat ion [Identifier] in Cervix by Cyto stain Maricel Walter MD Work Phone: Start: 05-12-2022 MRI of lumbar spine Start: 09-12-2021 Lipid 1996 panel - S vicky or Plasma Kiara White WARHEAD MAINTENANCE SPECIALIST-DIRECTOR [employer] Work Phone: Start: 03-05-2019 End: 03-05-2019 Colonoscopy Jonnathan Avendaño Work Phone: Start: 11-21-2018 End: 11-21-2018 Ultrasonography of breast Leslie thompson Work Phone: Start: 11-21-2018 End: 11-21-2018 MG Breast Views Leslie Lott Work Phone: Start: 11-21-2018 Mammography Lois snowden Start: 11-02-2018 End: 11-02-2018 MG Breast Views Leslie Lott Work Phone: Start: 11-02-2018 Mammography Maricel Walter MD Work Phone: Start: 10-31-2018 End: 10-31-2018 CASE REQUEST - ENDOSCOPY Андрей Meade Colby Work Phone: Cholecystectomy Kody chaney Work Phone: Plan of Treatment Date Care Activity Detail Author Start: 01-18-2040 Respiratory Syncytia l Virus Immunization: Risk, 60-74 Risk, or 75+ (1 - 1-dose 75+ series) Respiratory Syncytial Virus Immunization: Risk, 60-74 Risk, or 75+ (1 - 1-dose 75+ series) [facility] Start: 01-18-2040 RSV High Risk: (Elde rly (60+) or Population) (1 - 1-dose 75+ series) RSV High Risk: (Elderly (60+) or Population) (1 - 1-dose 75+ series) [facility] Start: 01-03-2030 Lipid panel Lipid Panel [facility] Start: 03-05-2029 Screening for malign ant neoplasm of colon [facility] Start: 11-28-2026 Screening for malign ant neoplasm of cervix [facility] Start: 09-12-2026 Fasting lipid profile LIPID SCREENIN G [facility] [facility] Start: 09-12-2026 Lipid panel LIPID SCREENING Pets are family too [facility] Start: 12-26-2025 [facility] Start: 12-25-2025 History and physical examination, annual for health maintenance Wellness Visit [facility] Start: 12-25-2025 End: 12-25-2025 Patient encounter procedure 12/25/2025 8:00 AM EST Office Visit [facility] [address] [id number] Maricel Walter MD [address] [address] [facility] Start: 07-15-2025 Influenza vaccination Influenz a Vaccine (Season Ended) [facility] Start: 07-12-2025 End: 07-12-2025 Patient encounter procedure 07/12/2025 9:30 AM EDT Office Visit [facility] Obstetrics and Gynecology [address] [place] [phone] Maggie Walker, DIRECTOR OF [employer] [address] [place] [id number] [facility] Physician [facility]etric[facility]ne[facility] Start: 02-21-2025 End: 02-21-2026 CT Abdomen and Pelvis W contrast IV CT abdomen pelvis w IV contrast Imaging Routine Abdominal pain, unspecified abdominal location Bloating Nausea Expected: 02/21/2025, Expires: 02/21/2026 [facility] Service Area Work Phone: Comment on above: Expected: 02/21/2025 , Expires: 02/21/2026 Start: 12-25-2024 End: 12-25-2025 CBC W Auto Differential panel - Blood CBC and Auto Differential Lab Routine Healthcare maintenance Expected: 12/25/2024 (Approximate), Expires: 12/25/2025 [facility] Service Area Work Phone: Comment on above: Expected: 12/25/2024 (Approximate), Expires: 12/25/2025 Start: 12-25-2024 End: 12-25-2025 Cobalamin (Vitamin B12) [Mass/volume] in Serum or Plasma Vitamin B12 Lab Routine Healthcare maintenance Expected: 12/25/2024 (Approximate), Expires: 12/25/2025 [facility] Work Phone: Comment on above: Expected: 12/25/2024 (Approximate), Expires: 12/25/2025 Start: 12-25-2024 End: 12-25-2025 Comprehensive metabolic 2000 panel - Serum or Plasma Comprehensive Metabolic Panel Lab Routine Healthcare maintenance Expected: 12/25/2024 (Approximate), Expires: 12/25/2025 [facility] Work Phone: Comment on above: Expected: 12/25/2024 (Approximate), Expires: 12/25/2025 Start: 12-25-2024 End: 12-25-2025 Lipid 1996 panel - Serum or Plasma Lipid Panel Lab Routine Healthcare maintenance Expected: 12/25/2024 (Approximate), Expires: 12/25/2025 [facility] Work Phone: Comment on above: Expected: 12/25/2024 (Approximate), Expires: 12/25/2025 Start: 12-25-2024 End: 12-25-2025 TSH with reflex to Free T4 if abnormal TSH with reflex to Free T4 if abnormal Lab Routine Healthcare maintenance Expected: 12/25/2024 (Approximate), Expires: 12/25/2025 [facility] Work Phone: Comment on above: Expected: 12/25/2024 (Approximate), Expires: 12/25/2025 Start: 12-25-2024 End: 12-25-2024 Patient encounter procedure 12/25/2024 8:20 AM EST Office Visit [place] [address] [phone] Maricel Walter MD [address] [place] [address] [facility] Start: 11-28-2024 Screening for malign ant neoplasm of cervix CERVICAL CANCER SCREENING DISCUSSION [facility] Start: 07-15-2024 COVID-19 Vaccine ( season) COVID-19 Vaccine () [facility] Start: 07-15-2024 COVID-19 VACCINE ( season) COVID-19 VACCINE ( season) [facility] Start: 07-15-2024 COVID-19 Vaccine ( season) COVID-19 Vaccine ( season) [facility] Start: 07-15-2024 Influenza vaccination INFLUENZA VACC INE (#1) [facility] Start: 11-28-2023 End: 11-28-2024 MG Breast - bilateral Screening MAMMO SCREENING WITH DUANE BILATERAL Imaging Routine Encounter for screening mammogram for malignant neoplasm of breast Expected: 11/28/2023, Expires: 11/28/2024 [facility] Comment on above: Expected: 11/28/2023 , Expires: 11/28/2024 Start: 07-25-2023 GRAEME, Provider : Uma Gonzalez II, Status: Pen, Time: 8:00 AM GRAEME, Provider: Uma Gonzalez II, Status: Pen, Time: 8:00 AM [facility] Work Phone: Start: 07-15-2023 COVID-19 VACCINE ( season) COVID-19 VACCINE ( season) [facility] Start: 07-15-2023 Influenza vaccination INFLUENZA VACC INE (#1) [facility] Start: 03-09-2023 NPV, Provider: Ellie Duran, Status: Pen, Time: 9:15 AM NPV, Provider: Ellie Duran, Status: Pen, Time: 9:15 AM TN[facility]Yynhzog-Alqlqxz Work Phone: Start: 02-08-2023 NPV, Provider: Ellie Duran, Status: Pen, Time: 2:00 PM NPV, Provider: Ellie Duran, Status: Pen, Time: 2:00 PM EQ-Cbyfudn-Wdqyitx Work Phone: Start: 01-21-2023 CYSTOSCOPY, Provider : [facility] RM,[id number], Status: Pen, Time: 7:30 AM CYSTOSCOPY, Provider: [facility] RM,[id number], Status: Pen, Time: 7:30 AM LY-Raagurk-Qgvybmp Work Phone: Start: 11-20-2021 End: 11-20-2021 Patient encounter procedure 11/20/2021 Office Visit Family Medicine Kiara White APRN-DIRECTOR OF [employer] [address] [place] [phone] [facility] Start: 10-22-2021 End: 10-22-2021 Patient encounter procedure 10/22/2021 Office Visit Family Medicine Kiara White APRN-DIRECTOR OF [employer] [address] [place] [phone] [facility] Start: 10-02-2021 Zoster vaccine hzv l mati for subcutaneous use ZOSTER (SHINGLES) VACCINE (2 of 2) [facility] Start: 10-01-2021 COVID-19 VACCINE (3 - Booster for Pfizer series) COVID-19 VACCINE (3 - Booster for Pfizer series) [facility] Start: 10-01-2021 COVID-19 VACCINE (3 - Pfizer booster) COVID-19 VACCINE (3 - Pfizer booster) [facility] Start: 07-15-2020 Influenza vaccinatio n given Sequential Influenza Vaccine (#1) [facility] Start: 11-21-2019 Screening for malign ant neoplasm of breast Mammogram [facility] Start: 11-21-2019 [facility] Start: 11-02-2019 Protein mass conc MAMMOGRAM SC REENING DISCUSSION [facility] Work Phone: Start: 11-02-2019 Screening for malign ant neoplasm of breast [facility] Start: 11-02-2019 Screening mammography MAMMOGRA M SCREENING DISCUSSION [facility] Start: 09-20-2019 Screening for malign ant neoplasm of cervix [facility] Start: 07-15-2019 Influenza vaccination INFLUENZA VACC INE (#1) [facility] Start: 05-22-2019 End: 05-22-2019 Ambulatory 05/22/2019 Appointment Mammography Leslie Lott DO [address] [place] [address] [phone] [facility] Mammography Start: 03-05-2019 Hospital Encounter [facility] Comment on above: COLONOSCOPY Start: 01-25-2019 End: 01-25-2019 Ambulatory [facility] Comment on above: COLONOSCOPY FOR COLO RECTAL CANCER SCREENING LOW/AVERAGE RISK INDIVIDUAL Encounter for screen ing colonoscopy Start: 11-30-2018 Ambulatory 11/30/2018 Hos pital Encounter Endoscopy Андрей Bowman MD [address] [place] [address] [phone] Encounter for screening colonoscopy [facility] Comment on above: Encounter for screen ing colonoscopy Start: 11-21-2018 End: 11-21-2018 Ambulatory [facility] Mammography Start: 11-02-2018 End: 11-02-2018 Ambulatory 11/02/2018 Appointment Mammography Leslie Lott DO [address] [place] [address] [phone] [facility] Mammography Start: 10-31-2018 Ambulatory 10/31/2018 Pro cedure Pass Endoscopy [facility] Start: 10-24-2018 End: 10-24-2018 Ambulatory 10/24/2018 Office Visit General Surgery Андрей Bowman MD [address] [place] [address] [phone] [facility] Start: 07-15-2018 Influenza vaccination INFLUENZA VACC INE (#1) [facility] Work Phone: Start: 07-15-2018 Influenza vaccinatio n given SEQUENTIAL INFLUENZA VACCINE (#1) [facility] Start: 2015 Administration of he rpes zoster vaccine Zoster Vaccines (1 of 2) [facility] Start: 2015 Colonoscopy COLON CANCER S CREENING DISCUSSION [facility] Start: 2015 Pneumococcal vaccination Pneum ococcal Vaccine (1 of 1 - PCV) [facility] Start: 2015 Pneumococcal Vaccine : Age 50+ (1 of 1 - PCV) Pneumococcal Vaccine: Age 50+ (1 of 1 - PCV) [facility] Start: 2015 Protein mass conc COLON CANCER SCREENING DISCUSSION [facility] Work Phone: Start: 2015 Screening for malign ant neoplasm of colon [facility] Start: 2015 Zoster vaccine hzv l mati for subcutaneous use ZOSTER (SHINGLES) VACCINE (1 of 2) [facility] Start: 2010 Colonoscopy COLORECTAL CAN CER SCREENING DISCUSSION [facility] Start: 2010 Screening for malign ant neoplasm of colon COLORECTAL CANCER SCREENING DISCUSSION [facility] Start: 2005 Fasting lipid profile LIPID SCREENIN G [facility] Work Phone: Start: 2005 Protein mass conc MAMMOGRAM SC REENING DISCUSSION [facility] Work Phone: Start: 1995 Screening for malign ant neoplasm of cervix HPV/Cotest [facility] Start: 1987 DTaP/Tdap/Td Vaccine s (1 - Tdap) DTaP/Tdap/Td Vaccines (1 - Tdap) [facility] Start: 1986 Screening for malign ant neoplasm of cervix HPV/Cotest [facility] Start: 01-18-1984 Hepatitis B vaccination HEP B VACCINE (1 of 3 - 19+ 3-dose series) [facility] Start: 01-18-1984 Hepatitis B Vaccines (1 of 3 - 19+ 3-dose series) Hepatitis B Vaccines (1 of 3 - 19+ 3-dose series) [facility] Start: 01-18-1984 Third diphtheria, tetanus and acellular pertussis (DTaP) vaccination TDAP (ADULT) [facility] Start: 1983 Hepatitis C antibody , confirmatory test Hepatitis C Screening [facility] Start: 1983 Hepatitis C screening Hepatitis C Sc reening [facility] Start: 1983 Tetanus vaccination TETANUS [facility] Start: 1981 COVID-19 Vaccine (1 of 2) COVID-19 Vaccine (1 of 2) [facility] Start: 01-18-[address] [facility] Start: 1978 HIV screening HIV SCREENING DISCUSSION [facility] Work Phone: Start: 1977 Adolescent depressio n screening assessment Depression Screening (PHQ9) [facility] Start: 1977 Depression screening using PHQ-9 (Patient Health Questionnaire 9) score Depression Screening/Follow-Up (PHQ-2/9) [facility] Start: 01-18-1968 History and physical examination, annual for health maintenance Wellness Visit [facility] Start: 1966 MMR Vaccines (1 of 1 - Standard series) MMR Vaccines (1 of 1 - Standard series) [facility] Start: 1965 Hepatitis B vaccination HEP B VACCINE (1 of 3 - 3-dose series) [facility] Start: 1965 Hepatitis C antibody , confirmatory test [facility] Start: 1965 Hepatitis C screening HEPATITI S C VIRUS SCREENING [facility] Start: 1965 HIV screening HIV Screening [facility] Start: 1965 Lipid panel Lipid Panel [facility] Start: 1965 Protein mass conc Mammogram [facility] Start: 1965 Screening for malign ant neoplasm of cervix PAP SMEAR [facility] Start: 1965 Screening for malign ant neoplasm of colon [facility] Start: 1965 Tetanus vaccination [facility] Start: 1965 Yearly Adult Physical Yearly Adult P hysical [facility] PAP/HPV ONLY (RFLX H PV 16/18/45) PAP/HPV ONLY (RFLX HPV 16/18/45) Cytology Routine 11/28/2023 2:45 PM EST [facility] Immunizations Immunization Date Immunization Notes Care Provider Gregory martinez 10-13-2021 zoster vaccine recombinant Kiara White WARHEAD MAINTENANCE SPECIALIST-[employer]OR [employer] Work Phone: [facility] 09-14-2021 zoster vaccine recombinant Maricel Walter MD Work Phone: [facility] Work Phone: 08-18-2021 influenza virus vaccine, unspecified formulation Sam Arias MD Work Phone: [facility] 08-07-2021 zoster vaccine recombinant Kiara White WARHEAD MAINTENANCE SPECIALIST-[employer]OR [employer] Work Phone: [facility] 08-07-2021 zoster vaccine, unspecified formulation Kiara White WARHEAD MAINTENANCE SPECIALIST-[employer] Work Phone: [facility] 07-15-2021 zoster vaccine recombinant Maricel Walter MD Work Phone: [facility] Work Phone: 03-31-2021 SARS-COV-2 (COVID-19 ), Mrna, Lnp-s, Pf, 30 Mcg/0.3 Ml Dose PFIZER Kiara Gonzalo WARHEAD MAINTENANCE SPECIALIST-DIRECTOR [employer] Work Phone: [facility] 03-09-2021 SARS-COV-2 (COVID-19 ), Mrna, Lnp-s, Pf, 30 Mcg/0.3 Ml Dose PFIZER Kiara Gonzalo WARHEAD MAINTENANCE SPECIALIST-[employer]OR [employer] Work Phone: [facility] 08-01-2020 influenza, injectabl e, quadrivalent, preservative free Kiara White WARHEAD MAINTENANCE SPECIALIST-[employer]OR [employer] Work Phone: [facility] 08-01-2020 influenza virus vaccine, unspecified formulation Maricel Walter MD Work Phone: [facility] Work Phone: 07-15-2020 influenza, injectabl e, quadrivalent, preservative free Maricel Walter MD Work Phone: [facility] Work Phone: Payers Date Payer Category Payer Self-pay 2025 Unknown [id number] 2023 [facility] Care (Private[facility] [id number] 2023 Managed Care (unspecified) [facility] [id number] 2023 Private Health Insurance VISH WAHL [id number] 2023-Present [address] [place] [address] [id number] 2023 Private Health Insurance [id number] 2019 Unknown [employer] HM O PPO POS [id number] 2019- [address] [place] [address] [id number] 2019 Managed Care HMO (unspecified) [facility] HMO/CHOICE PLUS/MAYUR/MAYUR PLUS [id number] 2019 Unknown [facility] HMO/MAYUR/ MAYUR PLUS/CHOICE PLUS xxxxxxxxx 2019-Present xxxxxxxxx [id number] 2019 Unknown [facility] HMO/SMITH CE PLUS/MAYUR/MAYUR PLUS [id number] 2019-Present [id number] 2019 Unknown [id number] 2019 Unknown ANTHEM ANTHEM BLUE/PREF/HMO/PPO [id number] 2019-Present xxxxxxxxxx [id number] 2018 Unknown 2018 Unknown ANTHEM ANTHEM HM O PPO POS [id number] 2018-Present [id number] 1965 Unknown [id number] .717 1965 Unknown [id number] .717 1965 Unknown [id number] [id number] .903 1965 Unknown [id number] .356 1965 Unknown [id number] .356 1965 Unknown [id number] 12.30.830.1.862318.3.579.2 .1069 1965 Unknown [id number] .1069 1965 Unknown [id number] .1069 1965 Unknown [id number] 12.30.830.1.252679.3.579.2 .1069 1965 Unknown [id number] 2.16.840.1.334179.3.579.2 .1069 1965 Unknown [id number] 2.16.840.1.622353.3.579.2 .983 1965 Unknown [id number] 2.16.840.1.955184.3.579.2 .1244 1965 Unknown [id number] .1244 1965 Unknown [id number] 2.16.840.1.197524.3.579.2 .1244 1965 Unknown [id number] 2.16.840.1.341920.3.579.2 .732 1965 Unknown [id number] .903 Unknown [facility] PACKAGE PLAN 1 [id number] Unknown [id number] Unknown [id number] [id number] Social History Date Type Detail Facility Start: 09-21-2018 [facility] Work Phone: Start: 1965 Sex Assigned At Not on file [facility] Work Phone: Start: 10-31-2018 End: 04-12-2025 Tobacco smoking status NHIS Former smoker [facility] Start: 03-14-2018 Alcohol Comment [facility] End: 11-14-1994 History of tobacco use Cigarette Smoker [facility] Start: 02-05-2019 End: 04-12-2025 Tobacco Comment quit approx 30 years ago, just a few cigarettes here and there [facility] Start: 02-05-2019 Alcohol Comment once per week [facility] Start: 03-06-2019 End: 04-12-2025 Tobacco use and exposure Never used [facility] Start: 03-06-2019 End: 04-12-2025 Alcohol intake Current drinker of alcohol (finding) [facility] Start: 12-01-2024 End: 02-21-2025 Exposure to SARS-CoV-2 (event) Not sure [facility] Start: 1965 Sex Assigned At Female [facility] Tobacco smoking consumption unknown [facility] Start: 11-28-2023 End: 04-12-2025 Former smoker Former smoker [facility] Work Phone: End: 11-14-1994 History of tobacco use Current smoker [facility] Start: 11-28-2023 End: 04-12-2025 Tobacco use panel [facility] Start: 03-14-2018 Gender identity Identifies as female gender (finding) [facility] Start: 12-11-2024 End: 02-21-2025 Alcoholic beverage intake Not Asked [facility] Work Phone: Start: 12-11-2024 Alcohol Comment socially [facility] Work Phone: Start: 02-26-2019 Sexual orientation Choose not to dis close [facility] Clinical Notes 09-18-2021 to 04-12-2025 Maggie Walker CNP - 04/12/2025 9:15 AM Emmett Clark MA - 02/21/2025 4:20 PM Jordan Walter MD - 02/21/2025 4:20 PM EDTPatient InstructionsPatient InstructionsAttachments Note Date & Type Note Facility 04-12-2025 History of Present illness Narrative Images from the original note were not included. Subjective Patient ID: Thom Sparks is a 60 y.o. female. Chief Complaint Patient presents with Menopause New pt here wanting to discuss menopause - c/o hair loss, anxiety/irritability, joint pain, vaginal dryness and low libido; interested in HRT, currently using Estradiol cream HPI HPI Presents with C/O menopausal symptoms and hair loss Last menstrual period was around 50 and she has been on Menopause HT in past for hot flashes Used estrogen/progesterone topical cream in past from compounded pharmacy Reports stopped this medication as her hot flashes resolved after using it for about 6 months Reports since off her Menopause HT she has noticed hair loss/thinning since 2021, mood swings, joint pain to knees /hip, fatigue, vaginal dryness and intermittent /rare hot flashes She denies any vaginal discharge or vaginal bleeding. She is sexually active in monogamous relationship with vaginal dryness and mild dyspareunia managed well on vaginal estrogen therapy Denies any changes in her breasts and does not have strong family history of breast cancer. She is up to date on her screening colonoscopy and does have a first degree relative with colon cancer. She is not having any changes in her bowels or bladder today. She is not on hormone replacement therapy other then local vaginal estrogen Reports she has her BAKER PASTRY care at [facility] 01/2025 normal Pap 12[facility]08 [facility] Recent screening labs 12/2024 all normal with slightly elevated LDL at 137 with good HDL at 71 Denies Medical HX of Migraines ,DVT ,hypertension , CVD or cancers The following portions of the patient's history were reviewed and updated as appropriate: allergies, current medications, past family history, past medical history, past social history, past surgical history, and problem list. Review of Systems Constitutional: Positive for fatigue. Negative for appetite change, chills, fever and unexpected weight change. HENT: Negative for congestion, sinus pain and sore throat. Eyes: Negative for visual disturbance. Respiratory: Negative for cough, shortness of breath and wheezing. Cardiovascular: Negative for chest pain, palpitations and leg swelling. Gastrointestinal: Negative for abdominal pain, constipation, diarrhea, nausea and vomiting. Endocrine: Negative for cold intolerance and heat intolerance. Genitourinary: Positive for dyspareunia. Negative for difficulty urinating, dysuria, flank pain, frequency, genital sores, hematuria, menstrual problem, pelvic pain, urgency, vaginal bleeding, vaginal discharge and vaginal pain. Musculoskeletal: Positive for arthralgias. Negative for joint swelling. Skin: Negative for color change and rash. Neurological: Negative for dizziness, syncope, numbness and headaches. Hematological: Does not bruise/bleed easily. Psychiatric/Behavioral: Negative for dysphoric mood and sleep disturbance. The patient is not nervous/anxious. Objective BP 121/83 Pulse 65 Ht 5' 8 Wt 89.8 kg (198 lb) LMP 11/14/2012 BMI 30.11 kg/m Patient's last menstrual period was 11/14/2012. Physical Exam Constitutional: Appearance: Normal appearance. Cardiovascular: Rate and Rhythm: Normal rate and regular rhythm. Pulmonary: Effort: Pulmonary effort is normal. Breath sounds: Normal breath sounds. Skin: General: Skin is warm and dry. Coloration: Skin is not pale. Findings: No rash. Neurological: Mental Status: She is alert and oriented to person, place, and time. Psychiatric: Mood and Affect: Mood normal. Behavior: Behavior normal. Normal female scalp hair distribution with no bald spots noted Assessment/Plan: Thom was seen today for menopause. Diagnoses and all orders for this visit: Menopausal symptoms Discussed treatment options for menopausal symptoms including hormonal and non-hormonal options. Reviewed diet, exercise and lifestyle changed to assist with menopausal symptoms Reviewed risks for MHT including but not limited to stroke, MD, thromboembolism and increased risk of breast cancer with combination therapy. Also reviewed recommendations for smallest dose for symptom relief. Pt verbalizes understanding of this and desires to restart with systemic MHT - estradioL (Vivelle-Dot) 0.0375 mg/24 hr; Place 1 (one) patch on the skin twice weekly Start: 04/15/25. - progesterone (PROMETRIUM) 100 MG capsule; Take 1 (one) capsule (100 mg total) by mouth nightly . Advised on common Side effects including vaginal bleeding ,breast tenderness and possible fluid retention Advised to stop medication and seek immediate care if has heavy vaginal bleeding , chest pain ,SOB or leg pain Hair loss Reviewed multifactorial causes of hair thinning loss in women She has had lab work up with her PCP and no abnormalities found in iron , Vit D or thyroid Reviewed seek dermatology for consult for hair loss and discussed oral medications and topical medication options RTO 3 months follow up to MHT New Prescriptions estradioL (Vivelle-Dot) 0.0375 mg/24 hr Starting on 04/15/2025. Place 1 (one) patch on the skin twice weekly Start: 04/15/25. progesterone (PROMETRIUM) 100 MG capsule Take 1 (one) capsule (100 mg total) by mouth nightly . Discontinued Medications Disp Refills Start End phentermine (ADIPEX-P) 37.5 MG capsule -- -- 04/12/2025 Class: Historical Med Reason for Discontinue: Patient's Request ascorbic acid, vitamin C, 500 mg/4 gram (1 teaspooful) Powd -- -- 04/12/2025 Class: Historical Med Reason for Discontinue: Error The total time spent with the patient including chart review/prep: 45min Total time spent documenting ,educating and counseling and /creating care plan: 30min Maggie Walker CNP documented in this encounter [facility] 04-12-2025 Note Subjective Patient ID: Thom Sparks is a 60 y.o. female. Chief Complaint Patient presents with Menopause New pt here wanting to discuss menopause - c/o hair loss, anxiety/irritability, joint pain, vaginal dryness and low libido; interested in HRT, currently using Estradiol cream HPI HPI Presents with C/O menopausal symptoms and hair loss Last menstrual period was around 50 and she has been on Menopause HT in past for hot flashes Used estrogen/progesterone topical cream in past from compounded pharmacy Reports stopped this medication as her hot flashes resolved after using it for about 6 months Reports since off her Menopause HT she has noticed hair loss/thinning since 2021, mood swings, joint pain to knees /hip, fatigue, vaginal dryness and intermittent /rare hot flashes She denies any vaginal discharge or vaginal bleeding. She is sexually active in monogamous relationship with vaginal dryness and mild dyspareunia managed well on vaginal estrogen therapy Denies any changes in her breasts and does not have strong family history of breast cancer. She is up to date on her screening colonoscopy and does have a first degree relative with colon cancer. She is not having any changes in her bowels or bladder today. She is not on hormone replacement therapy other then local vaginal estrogen Reports she has her BAKER PASTRY care at [facility] 01/2025 normal Pap 12/08 [facility] Recent screening labs 12/2024 all normal with slightly elevated LDL at 137 with good HDL at 71 Denies Medical HX of Migraines ,DVT ,hypertension , CVD or cancers The following portions of the patient's history were reviewed and updated as appropriate: allergies, current medications, past family history, past medical history, past social history, past surgical history, and problem list. Review of Systems Constitutional: Positive for fatigue. Negative for appetite change, chills, fever and unexpected weight change. HENT: Negative for congestion, sinus pain and sore throat. Eyes: Negative for visual disturbance. Respiratory: Negative for cough, shortness of breath and wheezing. Cardiovascular: Negative for chest pain, palpitations and leg swelling. Gastrointestinal: Negative for abdominal pain, constipation, diarrhea, nausea and vomiting. Endocrine: Negative for cold intolerance and heat intolerance. Genitourinary: Positive for dyspareunia. Negative for difficulty urinating, dysuria, flank pain, frequency, genital sores, hematuria, menstrual problem, pelvic pain, urgency, vaginal bleeding, vaginal discharge and vaginal pain. Musculoskeletal: Positive for arthralgias. Negative for joint swelling. Skin: Negative for color change and rash. Neurological: Negative for dizziness, syncope, numbness and headaches. Hematological: Does not bruise/bleed easily. Psychiatric/Behavioral: Negative for dysphoric mood and sleep disturbance. The patient is not nervous/anxious. Objective BP 121/83 Pulse 65 Ht 5' 8 Wt 89.8 kg (198 lb) LMP 11/14/2012 BMI 30.11 kg/m Patient's last menstrual period was 11/14/2012. Physical Exam Constitutional: Appearance: Normal appearance. Cardiovascular: Rate and Rhythm: Normal rate and regular rhythm. Pulmonary: Effort: Pulmonary effort is normal. Breath sounds: Normal breath sounds. Skin: General: Skin is warm and dry. Coloration: Skin is not pale. Findings: No rash. Neurological: Mental Status: She is alert and oriented to person, place, and time. Psychiatric: Mood and Affect: Mood normal. Behavior: Behavior normal. Normal female scalp hair distribution with no bald spots noted Assessment/Plan: Thom was seen today for menopause. Diagnoses and all orders for this visit: Menopausal symptoms Discussed treatment options for menopausal symptoms including hormonal and non-hormonal options. Reviewed diet, exercise and lifestyle changed to assist with menopausal symptoms Reviewed risks for MHT including but not limited to stroke, MD, thromboembolism and increased risk of breast cancer with combination therapy. Also reviewed recommendations for smallest dose for symptom relief. Pt verbalizes understanding of this and desires to restart with systemic MHT - estradioL (Vivelle-Dot) 0.0375 mg/24 hr; Place 1 (one) patch on the skin twice weekly Start: 04/15/25. - progesterone (PROMETRIUM) 100 MG capsule; Take 1 (one) capsule (100 mg total) by mouth nightly . Advised on common Side effects including vaginal bleeding ,breast tenderness and possible fluid retention Advised to stop medication and seek immediate care if has heavy vaginal bleeding , chest pain ,SOB or leg pain Hair loss Reviewed multifactorial causes of hair thinning loss in women She has had lab work up with her PCP and no abnormalities found in iron , Vit D or thyroid Reviewed seek dermatology for consult for hair loss and discussed oral medications and topical medication (more content not included)... [facility] 03-20-2025 Radiology Diagnostic study note [facility] Imaging Services [address] [place] [address] L/S Spine Bending Flex/Ext MR#: [id number] Acct: [id number] Name: THOM SPARKS Rep #: [id number] 1 : 1965 F 60 From: Jay Coffey MD PCP: Dr. Maricel Walter MD Status: REG CLI Study:L/S Spine Bending Flex/Ext Date of Exam : 03/18/25 Exam# [id number] Ordering Dr: LA RADER DO PROCEDURE: L/S SPINE BENDING FLEX/EXT 03/18/2025 REASON FOR EXAM: OTHER INTERVERTEBRAL DISC DEGENERATION, LUMBAR REGION WITH DISCOG TECHNIQUE: 6 views; AP, lateral, flexion-extension and bilateral obliques COMPARISON: None available FINDINGS: 5 [id number] lumbar vertebral body types identified. No fracture or malalignment. No evidence of instability. L1-2 [id number]-hn-[id number] disc space narrowing with degenerative endplate changes L2-3 moderate disc space narrowing with anterior corner spurring L3-4 mild disc space narrowing No evidence of spondylolysis. Status post cholecystectomy. RAD/L/S Spine Bending Flex/Ext IMPRESSION: Multilevel spondylosis/discogenic change as above. Reading Location: [id number] CC: Dr. Maricel Walter MD; LA KIDD DO ~ Contract Associate: Signed [facility] 02-21-2025 History of Present illness Narrative Subjective Patient ID: Thom Sparks is a 60 y.o. female who presents for Abdominal Pain (Radiates to back, worsens after she eats. ). [facility] Review of Systems Objective Physical Exam Assessment/Plan Jeanna Clark MA 02/21/25 3:52 PM Subjective Thom Sparks is a 60 y.o. female who presents for Abdominal Pain (Radiates to back, worsens after she eats. ). Here c/o abdominal pain, started 2 weeks ago, was eating yogurt, berries, nuts and a half hour later she had pain in her back and stomach, some nausea. She went home and did have some vomiting. She started feeling better, a couple of days later she had similar symptoms. The pain is in the right side/back, she has been bloated, having nausea. Decreased appetite. She has had her gallbladder out in 2010. It is not every time she eats but enough to be disturbing. Has had some urgency with bowel movements at times. She has some nausea medication left over from when she had the flu and that has been helpful. Abdominal Pain This is a new problem. The current episode started 1 to 4 weeks ago. The onset quality is sudden. The problem occurs 2 to 4 times per day. The most recent episode lasted 1 hours. The problem has been waxing and waning. The pain is located in the epigastric region and suprapubic region. The pain is at a severity of 6/10. The quality of the pain is burning, cramping and sharp. The abdominal pain radiates to the epigastric region and back. Associated symptoms include anorexia, arthralgias, belching, constipation, diarrhea, flatus and nausea. The pain is aggravated by certain positions and eating. The pain is relieved by Being still, bowel movements, certain positions, movement, passing flatus and standing. Objective Visit Vitals BP 122/70 Pulse 60 Physical Exam Vitals reviewed. Constitutional: General: She is not in acute distress. Cardiovascular: Rate and Rhythm: Normal rate and regular rhythm. Heart sounds: No murmur heard. Pulmonary: Effort: Pulmonary effort is normal. No respiratory distress. Breath sounds: Normal breath sounds. Abdominal: Palpations: Abdomen is soft. Comments: Mildly distended, mildly tender lower abdomen, no rebound or guarding. Skin: General: Skin is warm and dry. Neurological: General: No focal deficit present. Mental Status: She is alert. Mental status is at baseline. Assessment/Plan Problem List Items Addressed This Visit None Visit Diagnoses Abdominal pain, unspecified abdominal location - Primary Relevant Orders CT abdomen pelvis w IV contrast Bloating Relevant Orders CT abdomen pelvis w IV contrast Nausea Relevant Orders CT abdomen pelvis w IV contrast Maricel Walter MD documented in this encounter [facility] Work Phone: 02-21-2025 Instructions Maricel Walter MD - 02/21/2025 4:20 PM EDT Will get CT ordered, continue to watch diet for potential triggers. To ER for severe pain, fevers, signs of dehydration, etc. documented in this encounter [facility] Work Phone: 12-25-2024 History of Present illness Narrative Subjective Thom Sparks is a 59 y.o. female who presents for Follow-up (Follow up in office. ). Here for follow up pneumonia/influenza, check up. She states that she still has occasional chest tightness but overall is feeling much better than she was. Otherwise she has been pretty healthy. Gets BAKER PASTRY care/mammograms at [facility] in [place]. She had a colonoscopy in 2019 in [place] - repeat in 10 years. Objective Visit Vitals BP 116/70 Pulse 83 Physical Exam Vitals reviewed. Constitutional: General: She is not in acute distress. Cardiovascular: Rate and Rhythm: Normal rate and regular rhythm. Heart sounds: No murmur heard. Pulmonary: Effort: Pulmonary effort is normal. No respiratory distress. Breath sounds: Normal breath sounds. Skin: General: Skin is warm and dry. Neurological: General: No focal deficit present. Mental Status: She is alert. Mental status is at baseline. Assessment/Plan Problem List Items Addressed This Visit None Visit Diagnoses Healthcare maintenance - Primary Relevant Orders CBC and Auto Differential Comprehensive Metabolic Panel Lipid Panel TSH with reflex to Free T4 if abnormal Vitamin B12 Follow Up In Primary Care - Health Maintenance Maricel Walter MD documented in this encounter [facility] Work Phone: 12-25-2024 Instructions Maricel Walter MD - 12/25/2024 8:20 AM EST Get labs at her convenience. Follow up in 1 year and prn. documented in this encounter [facility] Work Phone: 12-11-2024 History of Present illness Narrative Subjective Thom Sparks is a 59 y.o. female who presents for Establish Care (Seen last Tuesday for Flu A, went to [facility] and then dx pneumonia. ). Here to get established. She was diagnosed with influenza on 12/05, on 12/08 she had a cxr and was diagnosed with pneumonia. She was treated with zithromax and amoxicillin and an inhaler. She states that she is better but still not feeling good. She continues to have a lot of nausea and coughing. Is not having any fevers currently. Objective Visit Vitals BP 110/68 Pulse 88 Temp 37.1 C (98.8 F) (Oral) Physical Exam Vitals reviewed. Constitutional: General: She is not in acute distress. Cardiovascular: Rate and Rhythm: Normal rate and regular rhythm. Heart sounds: No murmur heard. Pulmonary: Effort: Pulmonary effort is normal. No respiratory distress. Breath sounds: Normal breath sounds. Skin: General: Skin is warm and dry. Neurological: General: No focal deficit present. Mental Status: She is alert. Mental status is at baseline. Assessment/Plan Problem List Items Addressed This Visit None Visit Diagnoses Pneumonia due to infectious organism, unspecified laterality, unspecified part of lung - Primary Relevant Medications benzonatate (Tessalon) 100 mg capsule predniSONE (Deltasone) 20 mg tablet Maricel Waltre MD documented in this encounter [facility] Work Phone: 12-11-2024 Instructions Maricel Walter MD - 12/11/2024 8:20 AM EST Will add short course of low dose prednisone and tessalon perles, finish antibiotics. Follow up in 1-2 weeks, sooner if needed. documented in this encounter [facility] Work Phone: 12-05-2024 History of Present illness Narrative Main historian: self Patient presents with Nausea Associated symptoms: cough, vomiting, headache, back pain, chills, no fevers, Onset: yesterday Self treatments: none Alleviating factors none Aggravating factors: none Exposures: none Last visit: NA HPI Thom Sparks female 1965 presents to the [facility] with Chief Complaint Patient presents with Nausea Main historian: self Patient presents with Nausea Associated symptoms: cough and congestion started 3 days ago, nausea and vomiting and back pain started yesterday. Self treatments: none Alleviating factors none Aggravating factors: none Exposures: none Last visit: NA History Allergies Allergen Reactions Hydrocodone-Acetaminophen Hallucination bugs crawling in my head Current Outpatient Medications Medication Sig Ascorbic Acid (VITAMIN C PO) Take 1 tablet by mouth daily. Cholecalciferol (VITAMIN D3 PO) Take 1 capsule by mouth daily. estradiol 0.1 MG/GM cream USE A PEA SIZED AMOUNT IN THE VAGINA TWICE WEEKLY Misc Natural Products (TURMERIC) capsule Take 1 capsule by mouth daily. Multiple Vitamin (multivitamin) tablet Take 1 tablet by mouth daily. Ondansetron 4 MG Tab Dispersible tablet Take 1 tablet by mouth every 8 hours as needed for Nausea / Vomiting. hljcgrqzkzghreg-nigaaraowcghhgh-sj xtromethorphan 30-2-10 MG/5ML Syrup Take 10 mL by mouth every 6 hours as needed for Cold Symptoms. Tizanidine 2 MG tablet Take 1 tablet by mouth 3 times daily. albuterol 108 (90 Base) MCG/ACT Aero Soln inhaler Inhale 2 puffs every 4 hours as needed for Shortness of Breath, Cough or Wheezing. (Patient not taking: Reported on 11/28/2023) fluticasone-salmeterol (Advair Diskus) 250-50 MCG/DOSE Aerosol Powder, breath activated inhaler Inhale 1 puff 2 times daily. After administration, rinse mouth with water and spit. (Patient not taking: Reported on 11/28/2023) Dkjcup-Nbxnu-Xwsy Blue-Na Phos (Urogesic-Blue) 81.6 MG tablet Take 1 tablet by mouth daily. (Patient not taking: Reported on 12/05/2024) Zinc 50 MG capsule Take 1 capsule by mouth. (Patient not taking: Reported on 11/28/2023) No past medical history on file. Past Surgical History: Procedure Laterality Date EXCISION LINGUAL TONSILS GALL BLADDER SURGERY Social History Socioeconomic History Marital status: Spouse name: Not on file Number of children: Not on file Years of education: Not on file Highest education level: Not on file Occupational History Not on file Tobacco Use Smoking status: Former Types: Cigarettes Smokeless tobacco: Never Vaping Use Vaping status: Never Used Substance and Sexual Activity Alcohol use: Yes Comment: social Drug use: No Sexual activity: Yes Partners: Male control/protection: Menopause Other Topics Concern Service Not Asked Blood Transfusions Not Asked Caffeine Concern Not Asked Occupational Exposure Not Asked Hobby Hazards Not Asked Sleep Concern Not Asked Stress Concern Not Asked Weight Concern Not Asked Special Diet Not Asked Back Care Not Asked Exercise Not Asked Bike Helmet Not Asked Seat Belt Not Asked Domestic Violence No Social History Narrative Not on file Social Determinants of Health Financial Resource Strain: Not on file Food Insecurity: Not on file Transportation Needs: Not on file Physical Activity: Not on file Stress: Not on file Social Connections: Not on file Intimate Partner Violence: Not on file Housing Stability: Not on file Family History Problem Relation Age of Onset Bleeding or Clotting Problems Mother Cancer- Other Mother Cancer- Other Father ROS Review of Systems 8 systems reviewed with patient, negative unless specifically mentioned in history of present illness PHYSICAL EXAM Visit Vitals BP 120/57 (BP Location: Right arm, BP Position: Sitting) Pulse 95 Temp 99.3 F (37.4 C) (Temporal) Resp 14 Ht 1.727 m (5' 8) Wt 90.5 kg (199 lb 8 oz) LMP 09/21/2014 (Approximate) SpO2 96% BMI 30.33 kg/m Physical Exam Vitals and nursing note reviewed. Constitutional: General: She is not in acute distress. Appearance: She is ill-appearing. She is not toxic-appearing or diaphoretic. HENT: Nose: Congestion present. Mouth/Throat: Mouth: Mucous membranes are moist. Cardiovascular: Rate and Rhythm: Normal rate and regular rhythm. Pulses: Normal pulses. Heart sounds: Normal heart sounds. Pulmonary: Effort: Pulmonary effort is normal. No respiratory distress. Breath sounds: Normal breath sounds. No stridor. No wheezing, rhonchi or rales. Chest: Chest wall: No tenderness. Abdominal: Palpations: Abdomen is soft. Skin: General: Skin is warm and dry. Neurological: General: No focal deficit present. Mental Status: She is alert and oriented to person, place, and time. RESULTS No results found for this or any previous visit (from the past 2 hour(s)). ASSESSMENT/PLAN 1. Nausea and vomiting, unspecified vomiting type 2. Acute midline low back pain without sciatica 3. Viral illness Orders Placed This Encounter DISCONTD: Tizanidine 2 MG tablet DISCONTD: Ondansetron 4 MG Tab Dispersible tablet DISCONTD: dnxxxpzyjbmgyhy-rfxniezyqtipnru-cp xtromethorphan 30-2-10 MG/5ML Syrup Ondansetron 4 MG Tab Dispersible tablet qikevxbqnvkiwal-ewtfdmiokekqqvl-vw xtromethorphan 30-2-10 MG/5ML Syrup Tizanidine 2 MG tablet Consistent with viral illness, started on cough medication, Zofran for nausea and tizanidine 4 low back pain. Alternate Tylenol and ibuprofen for pain and fevers. Increase hydration as able. Follow up with PCP. Patient was advised to call with any questions or concerns. If symptoms worsen patient was advised to follow up in our office or the Emergency Dept. Benefits, risks, contraindications, and complications of recommended treatments were explained the patient understands and agrees to proceed with plan. Connie Haddad CNP 12/05/2024 documented in this encounter [facility] 12-05-2024 Instructions Connie Haddad CNP - 12/05/2024 3:20 PM EST Thank you for allowing us to be involved in your care today. Please follow up as discussed during your stay. This information is included in your discharge paperwork. Appropriate follow up is essential in your continued care after today's visit. Go to the Emergency Department at any point with worsening conditions or concerns. The FULL TIME and staff of the Urgent Care would like to thank you for choosing our facility for your health care needs. Our goal is to provide exceptional service. You may be receiving a survey in the mail following your visit. Because your feedback is very important to us, we hope you will take the time to complete and return the survey. If for any reason, you feel that you cannot rate us Very Good or 5 for the service you received today, please let us know prior to your discharge. Please follow up with your family doctor or one of your choosing. You may find a provider through the [employer] [facility]ician Referral Service by calling [phone] or by visiting [email or web address] Thank You for choosing the [facility]! The following attachments cannot be sent through Care Everywhere.Back Pain ([place])Viral Infections ([place])documented in this encounter [facility] 11-28-2023 History of Present illness Narrative New pt.Here for annual exam.Last pap 09-20-18 NIL HRHPV negative.Last mammogram 11-21-18 BIRADS3.Mammogram order placed. RADHA Sparks is a 58 y.o. female who presents today for concerns including Annual Field Support Technician Exam (New pt.Here for annual exam.Last pap 09-20-18 NIL HRHPV negative.Last mammogram 11-21-18 BIRADS3.) Does not do self breast awareness/exam No urinary symptoms nor pelvic pain reported at this time No other concerns reported at this time. Reported that she has had some burning after urination and UTI saw a urogynecologist for it who gave her some cream that she uses and it is helpful. I shared with patient that I typically defer UTI management to PCP and she shared that she did not have a PCP. I assured her that I will give her a referral line. No other concerns reported at this time LMP: Patient's last menstrual period was 09/21/2014 (approximate). No results found for: PAPSMEAR OB HISTORY: OB History Para Term AB Living 0 0 0 0 0 0 SAB IAB Ectopic Molar Multiple Live Births 0 0 0 0 0 0 HISTORY/ALLERGIES Allergies Allergen Reactions Hydrocodone-Acetaminophen Hallucination bugs crawling in my head No past medical history on file. Past Surgical History: Procedure Laterality Date EXCISION LINGUAL TONSILS GALL BLADDER SURGERY Social History Tobacco Use Smoking status: Former Years: 12 Types: Cigarettes Smokeless tobacco: Never Vaping Use Vaping Use: Never used Substance Use Topics Alcohol use: Yes Comment: social Drug use: No Family History Problem Relation Age of Onset Bleeding or Clotting Problems Mother Cancer- Other Mother Cancer- Other Father Current Outpatient Medications: Ascorbic Acid (VITAMIN C PO), Take 1 tablet by mouth daily., Disp: , Rfl: Cholecalciferol (VITAMIN D3 PO), Take 1 capsule by mouth daily., Disp: , Rfl: estradiol 0.1 MG/GM cream, USE A PEA SIZED AMOUNT IN THE VAGINA TWICE WEEKLY, Disp: , Rfl: Misc Natural Products (TURMERIC) capsule, Take 1 capsule by mouth daily., Disp: , Rfl: albuterol 108 (90 Base) MCG/ACT Aero Soln inhaler, Inhale 2 puffs every 4 hours as needed for Shortness of Breath, Cough or Wheezing. (Patient not taking: Reported on 11/28/2023), Disp: 18 g, Rfl: 0 fluticasone-salmeterol (Advair Diskus) 250-50 MCG/DOSE Aerosol Powder, breath activated inhaler, Inhale 1 puff 2 times daily. After administration, rinse mouth with water and spit. (Patient not taking: Reported on 11/28/2023), Disp: 60 Each, Rfl: 0 Bjoalo-Lkqyx-Hwic Blue-Na Phos (Urogesic-Blue) 81.6 MG tablet, Take 1 tablet by mouth daily. (Patient not taking: Reported on 11/28/2023), Disp: , Rfl: Zinc 50 MG capsule, Take 1 capsule by mouth. (Patient not taking: Reported on 11/28/2023), Disp: , Rfl: ROS Review of Systems Constitutional: Negative. HENT: Negative. Eyes: Negative. Respiratory: Negative. Cardiovascular: Negative. Gastrointestinal: Negative. Genitourinary: Negative. Musculoskeletal: Negative. Skin: Negative. Neurological: Negative. Psychiatric/Behavioral: Negative. All other systems reviewed and are negative. EXAM BP 115/78 (BP Location: Right arm, BP Position: Sitting) Pulse 63 Ht 5' 7 (1.702 m) Wt 201 lb 11.2 oz (91.5 kg) BMI 31.59 kg/m Smoking Status Former Physical Exam Vitals and nursing note reviewed. Exam conducted with a under cutter present. Constitutional: General: She is not in acute distress. Appearance: Normal appearance. She is obese. She is not ill-appearing. HENT: Head: Normocephalic and atraumatic. Cardiovascular: Rate and Rhythm: Normal rate and regular rhythm. Pulmonary: Effort: Pulmonary effort is normal. Breath sounds: Normal breath sounds. Chest: Chest wall: No mass. Breasts: Breasts are symmetrical. Right: Normal. Left: Normal. Abdominal: General: There is no distension. Palpations: Abdomen is soft. There is no mass. Tenderness: There is no abdominal tenderness. Genitourinary: General: Normal vulva. Exam position: Lithotomy position. Pubic Area: No rash. Labia: Right: No rash, tenderness, lesion or injury. Left: No rash, tenderness, lesion or injury. Vagina: Normal. Cervix: Normal. Uterus: Normal. Musculoskeletal: General: Normal range of motion. Cervical back: Normal range of motion. Lymphadenopathy: Upper Body: Right upper body: No axillary adenopathy. Left upper body: No axillary adenopathy. Skin: General: Skin is warm and dry. Neurological: General: No focal deficit present. Mental Status: She is alert and oriented to person, place, and time. Psychiatric: Mood and Affect: Mood normal. Behavior: Behavior normal. Diagnosis/Plan: Thom was seen today for annual exam. Diagnoses and all orders for this visit: Well woman exam with routine gynecological exam - JAY CYTOLOGY-BAKER PASTRY, LIQUID BASED Encouraged annual Field Support Technician Exams Patient shared that she was referred to me by a urogynecologist: she is concerned about possible recurrence of UTI; I shared with her that urogynecologist will typically not refer a patient with urinary concerns to a Field Support Technician but for routine Field Support Technician exams. I shared with her that I, the regular analytics intern will treat a UTI and refer to urology/urogynecology if treatment fails. I reassured patient that she is already getting treatment which is within my scope of practice and if she needed further treatment, it will have to be with the specialist. Patient was not understanding why I was saying that the urogyn cannot refer her to me for specialty care. After I finished my exam and asked patient if she had any other questions she said no. After I left the room, she pulled out medical record and showed the nurse stating that she was referred to me. Nurse brought the medical records to me and I walked back in the room to reassure patient that she was getting therapy that I would have otherwise given her and she was crying stating that I did not listen to her. I shared with patient that the norm is for Field Support Technician to refer to Urogyn for specialty care. Even after I went back into the room to figure out what was upsetting to patient I was not able to make any progress as she stated; It is okay Encounter for screening mammogram for malignant neoplasm of breast - MAMMO SCREENING WITH DUANE BILATERAL; Future CBE done today Did teaching on self breast awareness Encouraged monthly self breast exams and annual mammograms starting at age 40 Cervical cancer screening - JAY CYTOLOGY-BAKER PASTRY, LIQUID BASED We talked about the continuum of care in the screening of cervical cancer as per ASCCP guidelines. I shared with patient that the results will be back within a week and I will review them and release them to her on [employer]. If there are any abnormal results, she will hear from us and we will follow the algorithms set forth by the ASCCP guidelines. Answered all of patient's questions and she verbalized understanding Shared decision making; patient in agreement Sam Arias MD 11/28/2023 documented in this encounter [facility] 10-14-2022 History of Present illness Narrative Patient is here to establish for Recurrent UTI's. She states this started in October. She states her sx are usually dysuria, and frequency. LUTs are chronic and mild. Denies frequency and urgency. Denies dysuria and hematuria.. Nocturia x1.. Caffeine does worsen LUTs.. No medications for LUTs..No hx of kidney stones. [facility] Work Phone: 10-14-2022 History of Present illness Narrative Patient is here to establish for Recurrent UTI's. She states this started in October. She states her sx are usually dysuria, and frequency. LUTs are chronic and mild. Denies frequency and urgency. Denies dysuria and hematuria.. Nocturia x1.. Caffeine does worsen LUTs.. No medications for LUTs..No hx of kidney stones. [facility] Work Phone: 11-20-2021 History of Present illness Narrative Chief Complaint Patient presents with Weight Gain Patient stopped taking Adipex when she had covid. Doesn't want to continues. COVID-19 Post covid 10/27/ still having a little bit of hard time taking deep breath. Still a little weakness Leg Pain Lower right leg has been aching for the last two weeks. HPI: Covid: diagnosed with this on 10/27, did isolate her ten days, she is still having some trouble with mucus and getting a full breath, denies chest pain or tightness just feels like air isn't moving as well at this point, doesn't have inhalers for this, started getting leg tingling a couple weeks ago, denies redness, warmth, edema, calf pain, nic's sign is negative. ROS: Constitutional: Positive for fatigue. Negative for fever. HENT: Positive for postnasal drip. Negative for congestion, ear pain and sore throat. Eyes: Negative for pain and redness. Respiratory: Positive for shortness of breath. Negative for cough. Cardiovascular: Negative for chest pain and palpitations. Gastrointestinal: Negative for abdominal pain, constipation, diarrhea, nausea and vomiting. Genitourinary: Negative for difficulty urinating and dysuria. Musculoskeletal: Negative for arthralgias and myalgias. Skin: Negative for rash and wound. Neurological: Positive for weakness and light-headedness. Negative for dizziness and headaches. All other systems reviewed and are negative. Past medical/family/social history: reviewed and updated, see documented in patient's chart. Physical Exam: BP 103/75 Pulse 71 Ht 1.715 m (5' 7.52) Wt 90.9 kg (200 lb 8 oz) SpO2 98% BMI 30.92 kg/m Smoking Status Former Smoker Body mass index is 30.92 kg/m . Physical Exam HENT: Head: Normocephalic and atraumatic. Eyes: Conjunctiva/sclera: Conjunctivae normal. Pupils: Pupils are equal, round, and reactive to light. Cardiovascular: Rate and Rhythm: Normal rate and regular rhythm. Heart sounds: Normal heart sounds. No murmur heard. Pulmonary: Effort: Pulmonary effort is normal. Breath sounds: Normal breath sounds. Musculoskeletal: Cervical back: Normal range of motion and neck supple. Right lower leg: Normal. Left lower leg: Normal. Comments: Negative Nic's bilaterally Skin: General: Skin is warm and dry. Neurological: Mental Status: She is alert and oriented to person, place, and time. Assessment/Plan: 1. COVID-19 long hauler Start Advair daily, recommend albuterol 2-3 times a day until symptoms improve. - albuterol 108 (90 Base) MCG/ACT Aero Soln inhaler; Inhale 2 puffs every 4 hours as needed for Shortness of Breath, Cough or Wheezing. Dispense: 18 g; Refill: 0 - fluticasone-salmeterol (Advair Diskus) 250-50 MCG/DOSE Aerosol Powder, breath activated inhaler; Inhale 1 puff 2 times daily. After administration, rinse mouth with water and spit. Dispense: 60 Each; Refill: 0 Orders and follow up as documented in patient record; Patient was advised to call with any questions or concerns. If symptoms worsen patient was advised to follow up in our office or the Emergency Dept. Benefits, Risks, Contraindications, and Complications of recommended treatments were explained the patient understands and agrees to proceed with plan. Kiara White APRN-MARIAM 11/20/2021 Nurse Note: Review of Systems Constitutional: Positive for fatigue. Negative for fever. HENT: Positive for postnasal drip. Negative for congestion, ear pain and sore throat. Eyes: Negative for pain and redness. Respiratory: Positive for shortness of breath. Negative for cough. Cardiovascular: Negative for chest pain and palpitations. Gastrointestinal: Negative for abdominal pain, constipation, diarrhea, nausea and vomiting. Genitourinary: Negative for difficulty urinating and dysuria. Musculoskeletal: Negative for arthralgias and myalgias. Skin: Negative for rash and wound. Neurological: Positive for weakness and light-headedness. Negative for dizziness and headaches. All other systems reviewed and are negative. documented in this encounter [facility] 10-22-2021 History of Present illness Narrative Chief Complaint Patient presents with Weight Gain adipex #2 Fatigue HPI: Regarding Weight Gain: Thom Sparks is a 56 y.o. y.o. female who presents today with the complaint of obesity. She states that she has had gradual weight gain and would like to have assistance with weight loss. She has also been working on weight loss by: Diet changes: has been food journaling and keeping track of carbs and calories, staying under 1200, medication does help with appetite and keeps her from snacking. Exercise: admits doesn't get regular exercise but does get up a lot at work and makes herself move, gets outside all weekend long to hike and walk. Behavior change/strategies to overcome barriers: menopause, carbaholic-but is getting better. She has not used prescription medication for weight loss in the past. She denies heart disease She does have: see problem list Past Medical History Includes Her Wt Readings from Last 3 Encounters: 10/22/21 91 kg (200 lb 9.6 oz) 09/18/21 93 kg (205 lb 1.6 oz) 08/18/21 92.5 kg (204 lb) and current Body mass index is 30.94 kg/m . Reviewed today. Regarding Hyperlipidemia: Thom comes in today to follow up on chronic hyperlipidemia. This condition has been under good control. Alleviating factors include: elevated HDL Exacerbating factors include: poor diet, lack of exercise Other significant medical conditions include: see problem list Lab Results Component Value Date CHOLESTEROL 259 (H) 09/12/2021 TRIG 68 09/12/2021 HDL 68 (H) 09/12/2021 LDLCALC 177 (H) 09/12/2021 Lab Results Component Value Date ALT 19 09/12/2021 AST 17 09/12/2021 GGT 168 (H) 12/10/2010 ALKPHOS 66 09/12/2021 BILITOTAL 0.7 09/12/2021 BILIDIRECT 0.5 (H) 12/11/2010 Her hyperlipidemia severity is mild due to the above factors. ROS: Constitutional: Positive for fatigue. Negative for fever. HENT: Negative for congestion, ear pain and sore throat. Eyes: Negative for pain and redness. Respiratory: Negative for cough and shortness of breath. Cardiovascular: Negative for chest pain and palpitations. Gastrointestinal: Negative for abdominal pain, constipation, diarrhea, nausea and vomiting. Genitourinary: Negative for difficulty urinating and dysuria. Musculoskeletal: Negative for arthralgias and myalgias. Skin: Negative for rash and wound. Neurological: Negative for dizziness and headaches. Psychiatric/Behavioral: Positive for agitation, decreased concentration and sleep disturbance. The patient is nervous/anxious. All other systems reviewed and are negative. Past medical/family/social history: reviewed and updated, see documented in patient's chart. Physical Exam: BP 107/73 Pulse 64 Ht 1.715 m (5' 7.52) Wt 91 kg (200 lb 9.6 oz) BMI 30.94 kg/m Smoking Status Former Smoker Body mass index is 30.94 kg/m . Physical Exam HENT: Head: Normocephalic and atraumatic. Eyes: Conjunctiva/sclera: Conjunctivae normal. Pupils: Pupils are equal, round, and reactive to light. Cardiovascular: Rate and Rhythm: Normal rate and regular rhythm. Heart sounds: Normal heart sounds. No murmur heard. Pulmonary: Effort: Pulmonary effort is normal. Breath sounds: Normal breath sounds. Musculoskeletal: Cervical back: Normal range of motion and neck supple. Skin: General: Skin is warm and dry. Neurological: Mental Status: She is alert and oriented to person, place, and time. Assessment/Plan: 1. Pure hypercholesterolemia Recommend weight loss, continue with diet and increased activity, has lost 5 of 10 pound minimum weight loss goal - phentermine 37.5 MG tablet; Take 1 tablet by mouth every morning before breakfast. Dispense: 30 tablet; Refill: 0 2. BMI 31.0-31.9,adult As above. - phentermine 37.5 MG tablet; Take 1 tablet by mouth every morning before breakfast. Dispense: 30 tablet; Refill: 0 Time spent: 30 (LVL3=20, LVL4=30, LVL5=40) On preparation for patient visit (reviewing previous chart, current medical records, previous history, exam, testing, procedures, and medications). Face to face encounter obtaining history from patient/family/caregiver, independent interpreting of results (tests, labs, procedures, imaging), and communicating and explaining results. Coordination of care, preparing and printing discharge instructions, and any educational material. Documenting clinical information in the electronic health record, reviewing OARRS as needed. Orders and follow up as documented in patient record; We reviewed diet, exercise and weight control; We reviewed medications and possible side effects. All questions were answered; Patient was advised to call with any questions or concerns. If symptoms worsen patient was advised to follow up in our office or the Emergency Dept. Benefits, Risks, Contraindications, and Complications of recommended treatments were explained the patient understands and agrees to proceed with plan. LETTY Rios 10/22/2021 Nurse Note: Review of Systems Constitutional: Negative for fatigue and fever. HENT: Negative for congestion, ear pain and sinus pain. Eyes: Negative for pain and redness. Respiratory: Negative for cough and shortness of breath. Cardiovascular: Negative for chest pain and palpitations. Gastrointestinal: Negative for abdominal pain, constipation, diarrhea, nausea and vomiting. Genitourinary: Negative for difficulty urinating and dysuria. Musculoskeletal: Negative for arthralgias and myalgias. Skin: Negative for rash and wound. Neurological: Negative for dizziness and headaches. All other systems reviewed and are negative. documented in this encounter [facility] 09-18-2021 History of Present illness Narrative Chief Complaint Patient presents with Results Menopause Pt stopped taking Lexapro due to feeling brain fog and just not feeling in control. Weight Gain Would like to discuss Adipex Constipation HPI: Menopause: stopped her period at age 49, was having hot flashes and started taking black cohosh which did help tremendously, saw Joseph at [facility] and was given a cream which also helped with hot flashes and mood swings, reports is getting more frequent and worsening hot flashes, is now getting these through the day and feels like she's burning from the inside out, mood has changed as well and she has gotten more irritable and grouchy over the last 3 months, has gained 22 pounds since start of menopause, lacks motivation, fatigue, decreased sex drive, started lexapro last visit to help with some of these symptoms and did not tolerate, felt groggy with brain fog most of the day and stopped after three weeks. Constipation: this is chronic and ongoing, does use miralax every morning and does get benefit with this, does have a bowel movement almost daily, also eats a lot of berries and fiber to help with this. Regarding Weight Gain: Thom Sparks is a 56 y.o. y.o. female who presents today with the complaint of obesity. She states that she has had gradual weight gain and would like to have assistance with weight loss. She has also been working on weight loss by: Diet changes: looking for diet to follow, plans on going to [employer] this week for research, maybe doing a modified keto, feels like menopause is hindering a lot of her weight loss issues. Exercise: admits doesn't get regular exercise but does get up a lot at work and makes herself move, gets outside all weekend long to hike and walk. Behavior change/strategies to overcome barriers: menopause, carbaholic She has not used prescription medication for weight loss in the past. She denies heart disease She does have: see problem list Past Medical History Includes Her Wt Readings from Last 3 Encounters: 09/18/21 93 kg (205 lb 1.6 oz) 08/18/21 92.5 kg (204 lb) 10/31/18 93.5 kg (206 lb 3.2 oz) and current Body mass index is 31.63 kg/m . Reviewed today. Regarding Hyperlipidemia: Thom comes in today to follow up on chronic hyperlipidemia. This condition has been under good control. Alleviating factors include: elevated HDL Exacerbating factors include: poor diet, lack of exercise Other significant medical conditions include: see problem list Lab Results Component Value Date CHOLESTEROL 259 (H) 09/12/2021 TRIG 68 09/12/2021 HDL 68 (H) 09/12/2021 LDLCALC 177 (H) 09/12/2021 Lab Results Component Value Date ALT 19 09/12/2021 AST 17 09/12/2021 GGT 168 (H) 12/10/2010 ALKPHOS 66 09/12/2021 BILITOTAL 0.7 09/12/2021 BILIDIRECT 0.5 (H) 12/11/2010 Her hyperlipidemia severity is mild due to the above factors. ROS: Constitutional: Positive for fatigue. Negative for fever. HENT: Negative for congestion, ear pain and sore throat. Eyes: Negative for pain and redness. Respiratory: Negative for cough and shortness of breath. Cardiovascular: Negative for chest pain and palpitations. Gastrointestinal: Negative for abdominal pain, constipation, diarrhea, nausea and vomiting. Genitourinary: Negative for difficulty urinating and dysuria. Musculoskeletal: Negative for arthralgias and myalgias. Skin: Negative for rash and wound. Neurological: Negative for dizziness and headaches. Psychiatric/Behavioral: Positive for agitation, decreased concentration and sleep disturbance. The patient is nervous/anxious. All other systems reviewed and are negative. Past medical/family/social history: reviewed and updated, see documented in patient's chart. Physical Exam: BP 95/65 Pulse 58 Ht 1.715 m (5' 7.52) Wt 93 kg (205 lb 1.6 oz) BMI 31.63 kg/m Smoking Status Former Smoker Body mass index is 31.63 kg/m . Physical Exam HENT: Head: Normocephalic and atraumatic. Eyes: Conjunctiva/sclera: Conjunctivae normal. Pupils: Pupils are equal, round, and reactive to light. Cardiovascular: Rate and Rhythm: Normal rate and regular rhythm. Heart sounds: Normal heart sounds. No murmur heard. Pulmonary: Effort: Pulmonary effort is normal. Breath sounds: Normal breath sounds. Musculoskeletal: Cervical back: Normal range of motion and neck supple. Skin: General: Skin is warm and dry. Neurological: Mental Status: She is alert and oriented to person, place, and time. Assessment/Plan: 1. Menopausal symptoms Did not tolerate lexapro, will consider wellbutrin to help with fatigue, mood, and weight loss in the future, would like to forego this for now. 2. Pure hypercholesterolemia Recommend weight loss, start month #1 of phentermine, encouraged to look into lower carb diet, may look into ZAOZAO, discussed [place] law with patient and minimum 10 pound weight loss over three months, personal weight loss goal is 25 pounds in three months. - phentermine 37.5 MG tablet; Take 1 tablet by mouth every morning before breakfast. Dispense: 30 tablet; Refill: 0 3. BMI 31.0-31.9,adult above. - phentermine 37.5 MG tablet; Take 1 tablet by mouth every morning before breakfast. Dispense: 30 tablet; Refill: 0 Time spent: 30 (LVL3=20, LVL4=30, LVL5=40) On preparation for patient visit (reviewing previous chart, current medical records, previous history, exam, testing, procedures, and medications). Face to face encounter obtaining history from patient/family/caregiver, independent interpreting of results (tests, labs, procedures, imaging), and communicating and explaining results. Coordination of care, preparing and printing discharge instructions, and any educational material. Documenting clinical information in the electronic health record, reviewing OARRS as needed. Orders and follow up as documented in patient record; We reviewed diet, exercise and weight control; We reviewed medications and possible side effects. All questions were answered; Patient was advised to call with any questions or concerns. If symptoms worsen patient was advised to follow up in our office or the Emergency Dept. Benefits, Risks, Contraindications, and Complications of recommended treatments were explained the patient understands and agrees to proceed with plan. LETTY Rios 09/18/2021 Nurse Note: Review of Systems Constitutional: Negative for fatigue and fever. HENT: Negative for congestion, ear pain and sore throat. Eyes: Negative for pain and redness. Respiratory: Negative for cough and shortness of breath. Cardiovascular: Negative for chest pain and palpitations. Gastrointestinal: Positive for constipation. Negative for abdominal pain, diarrhea, nausea and vomiting. Genitourinary: Negative for difficulty urinating and dysuria. Musculoskeletal: Negative for arthralgias and myalgias. Skin: Negative for rash and wound. Neurological: Negative for dizziness and headaches. All other systems reviewed and are negative. documented in this encounter [facility] Evaluation note Diagnosis Menopausal symptoms- Primary Symptomatic menopausal or female climacteric states Pure hypercholesterolemia BMI 31.0-31.9,adult Body Mass Index 31.0-31.9, adult [facility] Diagnosis Pure hypercholesterolemia- Primary BMI 31.0-31.9,adult Body Mass Index 31.0-31.9, adult [facility] Diagnosis COVID-19 long hauler- Primary [facility] noteNo assessment information availableWKettering Health Work Phone: Evaluation note* Diagnosis Well woman exam with routine gynecological exam- Primary Routine gynecological examination Encounter for screening mammogram for malignant neoplasm of breast Other screening mammogram Cervical cancer screening Screening for malignant neoplasm of the cervix [facility] Diagnosis Nausea and vomiting, unspecified vomiting type- Primary Acute midline low back pain without sciatica Viral illness Unspecified viral infection, in conditions classified elsewhere and of unspecified site [facility] Diagnosis Pneumonia due to infectious organism, unspecified laterality, unspecified part of lung- Primary documented in this encounter [facility] Work Phone: Evaluation note* Diagnosis 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 documented in this encounter [facility] Work Phone: Evaluation note* Diagnosis Abdominal pain, unspecified abdominal location- Primary Bloating Flatulence, eructation, and gas pain Nausea Nausea alone documented in this encounter [facility] Work Phone: Evaluation note* Diagnosis Menopausal symptoms- Primary Symptomatic menopausal or female climacteric states Hair loss Unspecified alopecia documented in this encounter [facility] illness NarrativePatient is here for renal U/S results. Hx of recurrent UTI'S. U/S was normal. She did not want cysto. Chronic LUT'S sx are mild and stable. Denies urgency and frequency. Denies dysuria. Denies hematuria. Nocturia x1. No medication for LUT'S.[id number] Work Phone: Instructions* Attachments The following attachments cannot be sent through Care Everywhere. * Menopausal Hormone Therapy (HT) ([facility]) * Menopause and Perimenopause: General Info ([facility]) * Alopecia Areata ([facility]) documented in this encounterOhioHealthReason for referral (narrative)* Consultation (Routine) - Authorized Specialty Diagnoses / Procedures Referred By Pedro t Referred To Contact Primary Care Procedures Follow Up In Primary Care - Established Maricel Walter MD [facility] [place] [address] Phone: tel: fax: Referral ID Status Reason Start Date Expiration Date V isits Requested Visits Authorized [id number] Authorized 12/11/2024 12/11/2025 1 1 [facility] Work Phone: Reason for referral (narrative)No reason for referral information availableWKettering Health Work Phone: History of Present Illness * Caden Marie - 10/31/2018 11:00 AM EST Formatting of this note may be different from the original. Nurse Note: Review of Systems Constitutional: Negative for chills and fever. Eyes: Negative for visual disturbance. Respiratory: Negative for shortness of breath. Cardiovascular: Negative for chest pain, palpitations and leg swelling. Gastrointestinal: Negative for abdominal pain, blood in stool, constipation, diarrhea, nausea and vomiting. Genitourinary: Negative for difficulty urinating. Musculoskeletal: Negative for back pain, joint swelling and neck pain. Neurological: Negative for dizziness and headaches. Nursing Assessment: Physical Exam in this encounter* Jonnathan Avendaño MD - 02/05/2019 8:28 AM EDT HISTORY & PHYSICAL EXAMINATION Patient Name: Thom Sparks MR #: [id number] : 1965 Physicians: La Patterson Jr., MD (Family); La Patterson * (Referring) Chief Complaint/Reason for Visit: Screening colonoscopy History of Present Illness: Thom Sparks is a 54 y.o. y/o female without significant past medical history presenting for referral for a screening colonoscopy. Denies any significant changes in her bowel habits. Reports long- standing history of constipation. Has attempted recently to add fiber supple mentation to her diet. Reports having a bowel movement every other day denies any bright red blood and no black tar-like stools. No family history of colon cancer or significant polyp disease. And noprevious colonoscopy Risk factor/ Bowel Symptoms Diarrhea no. Constipation yes. Blood in stool no. Mucus in stool no. Change in caliber of stool no. Diagnosis of anemia no. Family history of colon cancer no. Family history of other digestive cancer. no. 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 Greenwood TONSILLECTOMY and adenoidectomy as a child Family History Problem Relation Age of Onset Melanoma Mother Hypertension Mother Hypertension Maternal Grandfather Prostate cancer Father Prostate cancer Brother Social History Socioeconomic History Marital status: Spouse name: Not on file Number of children: Not on file Years of education: Not on file Highest education level: Not on file Social Needs Financial resource strain: Not on file Food insecurity - worry: Not on file Food insecurity - inability: Not on file Transportation needs - medical: Not on file Transportation needs - non-medical: Not on file Occupational History Not on file Tobacco Use Smoking status: Not on file Substance and Sexual Activity Alcohol use: Not on file Drug use: Not on file Sexual activity: Not on file Other Topics Concern Not on file Social History Narrative Not on file Allergy Information: Patient has no allergy information on record. Home Medications: No current outpatient medications on file as of 02/05/2019. Review of Systems: Review of Systems Gastrointestinal: Positive for constipation. All other systems reviewed and are negative. Physical Examination: Vital Signs: BP 112/77 Pulse 64 Temp 98.6 F (37 C) Resp 14 Ht 5' 8 Wt 93 kg (205 lb) BMI 31.17 kg/m Physical Exam Constitutional: She is oriented to person, place, and time. She appears well- developed and well-nourished. HENT: Head: Normocephalic. Eyes: Pupils are equal, round, and reactive to light. Neck: Normal range of motion. Cardiovascular: Normal rate. Pulmonary/Chest: Effort normal. Abdominal: Soft. She exhibits no distension. Neurological: She is alert and oriented to person, place, and time. Skin: Skin is warm and dry. Psychiatric: She has a normal mood and affect. Her behavior is normal. Laboratory and Additional Data Reviewed: Laboratory 02/05/19 8:36 AM Laboratory No results found for: WBC, RBC, HGB, HCT, PLT No results found for: AMYLASE No results found for: LIPASE Assessment and Plan: Thom Sparks is a 54 y.o. y/o female without significant past medical history presenting for screening colonoscopy Patient Active Problem List Diagnosis Encounter for screening colonoscopy Plan: Schedule for colonoscopy. The risks and benefits of my recommendations, as well as other treatment options were discussed with the patient today including but not limited to perforation and bleeding. Prep instruction providedand consent obtained. Questions were answered. Screening and Health maintenance Colonoscopy - Last colonoscopy none in this encounter Assessments Diagnosis Encounter for screening colo noscopy - Primary Special screening for malignant neoplasms, colon Diagnosis Screening for breast cancer Breast screening, unspecified Diagnosis Abnormal mammogram Abnormal mammogram, unspecified Diagnosis Encounter for screening colonoscopy- Primary Diagnosis Encounter for screening colonoscopy Reason for Referral Status Reason Specialty Diagnoses / Procedures Referre d By Contact Referred To Contact Closed Diagnoses Screening for breast cancer Procedures MAMMO SCREENING BILATERAL Leslie Lott DO [address] [place] [address] Status Reason Specialty Diagnoses / Procedures Referre d By Contact Referred To Contact Closed Diagnoses Abnormal mammogram Procedures US BREAST LIMITED UNILATERAL RIGHT Leslie Lott, DO [address] [place] [address] Status Reason Specialty Diagnoses / Procedures Referre d By Contact Referred To Contact Closed Diagnoses Abnormal mammogram Procedures MAMMO DIAGNOSTIC RIGHT Leslie Lott, DO [address] [place] [address] Status Reason Specialty Diagnoses / Procedures Referred By Contact Referred To Contact Closed General Surgery Diagnoses Encounter for screening colonoscopy La Patterson Jr., MD [address] [place] [address] Jonnathan Avendaño MD [address] [facility] [address] [place] [id number] Specialty Diagnoses / Procedures Referred By Contac t Referred To Contact Diagnoses Encounter for screening mammogram for malignant neoplasm of breast Procedures MAMMO SCREENING WITH DUANE Sam Quintero MD [address] [place] [address] Referral ID Status Reason Start Date Expiration Date V isits Requested Visits Authorized [id number] New Request 11/28/2023 12/22/2024 1 1 Summary Purpose Family History No Family History Records FoundUnknown Family Member Name Dates Details Family history of malignant neoplasm of prostate: Father(V16.42, Z80.42) Status:Active Family history of malignant melanoma: Mother(V16.8, Z80.8) Status:Active Unknown Family Member Name Dates Details Family history of malignant neoplasm of prostate: Father(V16.42, Z80.42) Status:Active Family history of malignant melanoma: Mother(V16.8, Z80.8) Status:Active Unknown Family Member Name Dates Details Family history of malignant neoplasm of prostate: Father(V16.42, Z80.42) Status:Active Family history of malignant melanoma: Mother(V16.8, Z80.8) Status:Active Unknown Family Member Name Dates Details Family history of malignant neoplasm of prostate: Father(V16.42, Z80.42) Status:Active Family history of malignant melanoma: Mother(V16.8, Z80.8) Status:Active Advance Directives No Advanced Directives Records FoundDocuments on File Type Date Recorded 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 Expl anation Advance Directives and Uriel allen Will 03/05/2019 8:35 AM Chief Complaint and Reason for Visit Chief Complaint DYSPFUNCTION L/S ARE A, LUMBAR RADICULOPATHY & DDD Chief Complaint Admit Date LUMBAR SERIES XRAY March 18, 2025 4:04pm Chief Complaint Establishing with Recurrent UTI'sEstablishing with Recurrent UTI'sRenal u/s results Additional Source Comments Reason for Visit (unrecogniz ed section and content) Reason Comments Other Reason Comments New Patient Consult for colonosc opy Status Reason Specialty Diagnoses / Procedures Referred By Contact Referred To Contact Open General Surgery Diagnoses Family history of colon cancer Leslie Lott DO [address] [place] [address] Андрей Bowman MD [address] [place] [address] Status Reason Specialty Diagnoses / Procedures Referre d By Contact Referred To Contact Closed Diagnoses Screening for breast cancer Procedures MAMMO SCREENING BILATERAL Leslie Lott DO [address] [place] [address] Reason Comments Appointment Status Reason Specialty Diagnoses / Procedures Referre d By Contact Referred To Contact Closed Diagnoses Abnormal mammogram Procedures US BREAST LIMITED UNILATERAL RIGHT Leslie Lott DO [address] [place] [address] Status Reason Specialty Diagnoses / Procedures Referre d By Contact Referred To Contact Closed Diagnoses Abnormal mammogram Procedures MAMMO DIAGNOSTIC RIGHT Leslie Lott DO [address] [place] [address] Reason Comments Consult colonoscopy Status Reason Specialty Diagnoses / Procedures Referred By Contact Referred To Contact Closed General Surgery Diagnoses Encounter for screening colonoscopy La Patterson Jr., MD [address] [place] [address] Jonnathan Avendaño MD [address] [facility] [place] [address] Status Reason Specialty Diagnoses / Procedures Referre d By Contact Referred To Contact Diagnoses Encounter for screening colonoscopy Encounter for screening colonoscopy [Z12.11] Procedures HI COLONOSCOPY FLX DX W/COLLJ SPEC WHEN PFRMD Jonnathan Avendaño MD [address] [place] [address] Reason Comments Follow-up Reason Comments Results Menopause Pt stopped taking Le xapro due to feeling brain fog and just not feeling in control. Weight Gain Would like to discus s Adipex Constipation Reason Comments Weight Gain adipex #2 Fatigue Reason Comments Weight Gain Patient stopped taki ng Adipex when she had covid. Doesn't want to continues. COVID-19 Post covid 10/27/21 still having a little bit of hard time taking deep breath. Still a little weakness Leg Pain Lower right leg has been aching for the last two weeks. Reason Comments Annual Exam New pt.Here for mee al exam.Last pap 09-20-18 NIL HRHPV negative.Last mammogram 11-21-18 BIRADS3. 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 Reason Comments Follow-up Follow up in office. Specialty Diagnoses / Procedures Referred By Pedro zhao Referred To Contact Primary Care Procedures Follow Up In Primary Care - Established Maricel Walter MD [address] [address] Phone: tel: fax: Referral ID Status Reason Start Date Expiration Date V isits Requested Visits Authorized [id number] Authorized 12/11/2024 12/11/2025 1 1 Reason Comments Abdominal Pain Radiates to back, wo rsens after she eats. Reason Comments Menopause New pt here wanting to discuss menopause - c/o hair loss, anxiety/irritability, joint pain, vaginal dryness and low libido; interested in HRT, currently using Estradiol cream INFORMATION SOURCE (unrecogn ized section and content) DATE CREATED AUTHOR 11/12/2018 [facility] DATE CREATED AUTHOR AUTHOR'S ORGANIZ ATION 03/05/2019 [facility] DATE CREATED AUTHOR AUTHOR'S ORGANIZ ATION 02/12/2023 [employer] DATE CREATED AUTHOR AUTHOR'S ORGANIZ ATION 02/12/2023 [facility] DATE CREATED AUTHOR AUTHOR'S ORGANIZ ATION 02/24/2023 [facility] DATE CREATED AUTHOR AUTHOR'S ORGANIZ ATION 12/07/2024 [facility] DATE CREATED AUTHOR AUTHOR'S ORGANIZ ATION 01/06/2025 [facility] DATE CREATED AUTHOR AUTHOR'S ORGANIZ ATION 02/23/2025 [facility] DATE CREATED AUTHOR AUTHOR'S ORGANIZ ATION 03/21/2025 [facility] DATE CREATED AUTHOR AUTHOR'S ORGANIZ ATION 03/22/2025 [facility] DATE CREATED AUTHOR AUTHOR'S ORGANIZ ATION 04/14/2025 [facility] Addendum Note - Jonnathan Avendaño MD - 02/05/2019 8:59 AM EDT Miscellaneous Notes (unrecog nized section and content) Addended by: JNONATHAN AVENDAÑO on: 02/05/2019 08:59 AM Modules accepted: Orders, SmartSet in this encounter Jonnathan Avendaño MD - 03/05/2019 9:26 AM PORTERTPJonnathan jaime MD - 02/05/2019 8:28 AM EDT H&P Notes (unrecognized sect ion and content) INTERVAL HISTORY AND PHYSICAL Patient Name: Thom Sparks Admit Date: [id number] MR #: [id number] : 1965 The H&P has been reviewed and the patient has been examined. I concur with the findings of the H&P. There are no significant changes. It is appropriate to proceed with the planned procedure. Jonnathan Avendaño MD 03/05/2019 9:26 AM HISTORY & PHYSICAL EXAMINATION Patient Name: Thom Sparks MR #: [id number] : 1965 Physicians: La Patterson Jr., MD (Family); La Patterson * (Referring) Chief Complaint/Reason for Visit: Screening colonoscopy History of Present Illness: Thom Sparks is a 54 y.o. y/o female without significant past medical history presenting for referral for a screening colonoscopy. Denies any significant changes in her bowel habits. Reports long-standing history of constipation. Has attempted recently to add fiber supplementation to her diet. Reports having a bowel movement every other day denies any bright red blood and no black tar-like stools. No family history of colon cancer or significant polyp disease. And no previous colonoscopy Risk factor/ Bowel Symptoms Diarrhea no. Constipation yes. Blood in stool no. Mucus in stool no. Change in caliber of stool no. Diagnosis of anemia no. Family history of colon cancer no. Family history of other digestive cancer. no. 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 Greenwood TONSILLECTOMY and adenoidectomy as a child Family History Problem Relation Age of Onset Melanoma Mother Hypertension Mother Hypertension Maternal Grandfather Prostate cancer Father Prostate cancer Brother Social History Socioeconomic History Marital status: Spouse name: Not on file Number of children: Not on file Years of education: Not on file Highest education level: Not on file Social Needs Financial resource strain: Not on file Food insecurity - worry: Not on file Food insecurity - inability: Not on file Transportation needs - medical: Not on file Transportation needs - non-medical: Not on file Occupational History Not on file Tobacco Use Smoking status: Not on file Substance and Sexual Activity Alcohol use: Not on file Drug use: Not on file Sexual activity: Not on file Other Topics Concern Not on file Social History Narrative Not on file Allergy Information: Patient has no allergy information on record. Home Medications: No current outpatient medications on file as of 02/05/2019. Review of Systems: Review of Systems Gastrointestinal: Positive for constipation. All other systems reviewed and are negative. Physical Examination: Vital Signs: BP 112/77 Pulse 64 Temp 98.6 F (37 C) Resp 14 Ht 5' 8 Wt 93 kg (205 lb) BMI 31.17 kg/m Physical Exam Constitutional: She is oriented to person, place, and time. She appears well-developed and well-nourished. HENT: Head: Normocephalic. Eyes: Pupils are equal, round, and reactive to light. Neck: Normal range of motion. Cardiovascular: Normal rate. Pulmonary/Chest: Effort normal. Abdominal: Soft. She exhibits no distension. Neurological: She is alert and oriented to person, place, and time. Skin: Skin is warm and dry. Psychiatric: She has a normal mood and affect. Her behavior is normal. Laboratory and Additional Data Reviewed: Laboratory 02/05/19 8:36 AM Laboratory No results found for: WBC, RBC, HGB, HCT, PLT No results found for: AMYLASE No results found for: LIPASE Assessment and Plan: Thom Sparks is a 54 y.o. y/o female without significant past medical history presenting for screening colonoscopy Patient Active Problem List Diagnosis Encounter for screening colonoscopy Plan: Schedule for colonoscopy. The risks and benefits of my recommendations, as well as other treatment options were discussed with the patient today including but not limited to perforation and bleeding. Prep instruction provided and consent obtained. Questions were answered. Screening and Health maintenance Colonoscopy - Last colonoscopy none documented in this encounter Martha Cabrera RN - 03/05/2019 8:48 AM EDT Nursing Notes (unrecognized section and content) Pt states Sonny Espinoza is driving her home today documented in this encounter Care Teams (unrecognized sec tion and content) Learning Specialist Relationship Specialty Start Date End Date Kiara White APRN-[employer]OR OF [employer] [address] [place] [phone] PCP - General Certified Nurse Practitioner 08/18/21 Learning Specialist Relationship Specialty Start Date End Date Kiara White APRN-[employer]OR [employer] [address] [place] [phone] PCP - General Certified Nurse Practitioner 08/18/21 Learning Specialist Relationship Specialty Start Date End Date Kiara White APRN-[employer] [address] [place] [phone] PCP - General Certified Nurse Practitioner 08/18/21 Learning Specialist Relationship Specialty Start Date End Date Kody Ferris PA-C [address] [facility] [address] [place] [phone] PCP - General 12/23/22 Learning Specialist Relationship Specialty Start Date End Date Maricel Walter MD [address] [place], [place] [phone] PCP - General Family Medicine 12/25/24 Learning Specialist Relationship Specialty Start Date End Date Maricel Walter MD [address] [place] [id number] PCP - General Family Medicine 12/25/24 Team Status: Active Member Role Status Dates Dr. Maricel Walter MD Primary Care Provider Act mati Team Status: Inactive Member Role Status Dates Dr. Maricel Walter MD Primary Care Provider Act mati Start: March 18, 2025 End: March 18, 2025 LA KIDD DO Attending Provider Active Start: March 18, 2025 End: March 18, 2025 LA KIDD DO Referring Provider Active Start: March 18, 2025 End: March 18, 2025 Learning Specialist Relationship Specialty Start Date End Date La Patterson Jr., MD [address] [place] [address] PCP - General Internal Medicine 01/03/19 La Patterson Jr., MD [address] [place] [address] Referring Physician Internal Medicine 01/03/19 Goals (unrecognized section and content) Goals may be documented in a n alternate sectionGoals may be documented in an alternate section <item><item> Privacy Markings (unrecogniz ed section and content) Section Author: Elly Dailey PROHIBITION ON REDISCLOSURE OF CONFIDENTIAL INFORMATION This notice accompanies a disclosure of information concerning a client made to you with the consent of such client. Section Author: Elly Dailey PROHIBITION ON REDISCLOSURE OF CONFIDENTIAL INFORMATION This notice accompanies a disclosure of information concerning a client made to you with the consent of such client. FOR RECORDS PERTAINING TO PATIENTS WHO ARE OR HAVE BEEN ENROLLED IN A CHEMICAL DEPENDENCY/SUBSTANCEABUSE PROGRAM, SOME INFORMATION MAY BE OMITTED. This clinical summary was aggregated from multiple sources. Caution should be exercised in using it in the provision of clinical care. This summary normalizes information from multiple sources, and as a consequence, information in this document may materially change the coding, format and clinical context of patient data. In addition, data may be omitted in some cases. CLINICAL DECISIONS SHOULD BE BASED ON THE PRIMARY CLINICAL RECORDS. [facility] [employer] [facility]. provides no warranty or guarantee of the accuracy or completeness of information in this document.
== END | disposition home or self-care (01) ==
PROVIDERS: PCP Family Medicine; Referring Provider Chiropractor Orthopedic; Visit Provider Chiropractor Orthopedic
DX: M17.11 Unilateral primary osteoarthritis, right knee (principal)
CPT/HCPCS: 73564